=== PATIENT | female | born 1950 | race Caucasian/White ===

== ENCOUNTER 2018-04-01 22:11 | Emergency (ER) | payer MEDICARE, OTHER ==
[~2018-04-01] VITALS: Ht 162.6 cm; Wt 77.1 kg
--- NOTE | 2018-04-01 23:14 | ED Upper Extremity ---
General Chief Complaint: Trauma-Non Activation Stated Complaint: FALL Nursing Triage Note: LT ELBOW PAIN ONSET AFTER TAKING HER NIGHTTIME MEDS ET FELL. DENIES LOC. ABRASION ET BRUISING NOTED TO LT ELBOW Nursing Sepsis Screen: No Definite Risk Source: patient Exam Limitations: no limitations History of Present Illness Date Seen by Provider: April 01, 2018 Time Seen by Provider: 23:14 Initial Comments 67-year-old female patient presents to the emergency department complaints of left elbow pain, swelling, and bruising after falling last night after taking her nighttime meds. Denies hitting her head, loss of consciousness, confusion, or neck pain. Location Injury Occurred: HOME Onset: yesterday Pain/Injury Location: left elbow Method of Injury: fell Modifying Factors: Worse With Movement Allergies and Home Medications Allergies Coded Allergies: Sulfa (Sulfonamide Antibiotics) (Verified Allergy, Unknown, 04/01/18) codeine (Verified Allergy, Unknown, 04/01/18) meperidine (Verified Allergy, Unknown, 04/01/18) Uncoded Allergies: NOVACAINE (Allergy, Unknown, 04/01/18) Patient Home Medication List Home Medication List Reviewed: Yes Constitutional: no symptoms reported EENTM: no symptoms reported Respiratory: no symptoms reported Cardiovascular: no symptoms reported Gastrointestinal: no symptoms reported Genitourinary: no symptoms reported Musculoskeletal: see HPI; No back pain; joint pain, joint swelling; No neck pain Skin: change in color (ecchymosis left elbow) Psychiatric/Neurological: Denies Headache, Denies Numbness, Denies Paresthesia , Denies Tingling, Denies Weakness All Other Systems Reviewed Negative Unless Noted: Yes (Negative excepted noted.) Past Feliabx-Jwfsxp-Ydgesq Hx Patient Social History Alcohol Use: Denies Use Recreational Drug Use: No Smoking Status: Former Smoker Former Smoker, Quit: May 02, 1984 Recent Foreign Travel: No Contact w/Someone Who Travel: No Recent Infectious Disease Expo: No Recent Hopitalizations: No Physical Abuse: No Sexual Abuse: No Mistreated: No Fear: No Past Medical History Surgeries: Yes (BRAIN) Section, Orthopedic, Tubal Ligation Cardiac: No Neurological: Yes (ANEURYSM) Genitourinary: No Gastrointestinal: No Musculoskeletal: No Endocrine: No HEENT: No Cancer: No Psychosocial: No Nursing Suicide Risk Score: 0 Family Medical History Reviewed Nursing Family Hx No Pertinent Family Hx Physical Exam Vital Signs Capillary Refill : Less Than 3 Seconds General Appearance: WD/WN, no apparent distress HEENT: PERRL/EOMI, normal ENT inspection, TMs normal, pharynx normal Neck: non-tender, full range of motion, supple, normal inspection Cardiovascular: normal peripheral pulses, regular rate, rhythm, no murmur Respiratory: chest non-tender, lungs clear, normal breath sounds, no respiratory distress, no accessory muscle use Gastrointestinal: normal bowel sounds, non tender, soft, no organomegaly Back: normal inspection, no vertebral tenderness Shoulder: normal inspection, non-tender, no evidence of injury, normal ROM Elbow/Forearm: normal ROM, Left, abrasions (abrasion to the left posterior elbow.), bone tenderness, ecchymosis (posterior elbow.), pain, soft tissue tenderness, swelling (moderate sized hematoma of the left posterior elbow with a superficial abrasion.) Wrist: Yes normal inspection, Yes non-tender, Yes no evidence of injury, Yes normal ROM Hand: normal inspection, non-tender, no evidence of injury, normal ROM, Left Neurologic/Tendon: normal sensation, normal motor functions, normal tendon functions, responds to pain, no evidence tendon injury Neurologic/Psychiatric: no motor/sensory deficits, alert, normal mood/affect, oriented x 3 Skin: normal color, warm/dry, ecchymosis (left posterior elbow) Progress/Results/Core Measures Vital Signs/I&O Blood Pressure Mean: 89 Diagonstic Imaging: Xray Plain Films/CT/US/NM/MRI: elbow Comments no acute bony abnormality. Reviewed: Reviewed/Discussed (with Dr. Garcia.) Departure Communication (Admissions) Patient refuses CT head and tetanus vaccination. diagnostic findings of the left elbow discussed with the patient. patient refusal for ct head and tetanus discussed with dr. garcia. Impression Primary Impression: Traumatic hematoma of left elbow Qualified Codes: S50.02XA - Contusion of left elbow, initial encounter Additional Impressions: Elbow pain, left Fall Qualified Codes: W19.XXXA - Unspecified fall, initial encounter Disposition: HOME, SELF-CARE Condition: Improved Departure-Patient Inst. Decision time for Depature: 23:39 Patient Instructions: Contusion (DC), Preventing Falls in the Older Adult, Skin Abrasions (DC) Add. Discharge Instructions: All discharge instructions reviewed with patient and/or family. Voiced understanding. Medications as instructed. Continue usual home medications. Shower with antibacterial soap. Apply triple antibiotic ointment twice daily for 3 days to the left posterior elbow. Arm sling as instructed. Follow-up with Dr. Swann as an outpatient for recheck if no improvement in symptoms. Return in the emergency department for worsened symptoms or any other concerns. COOPER ROUSSEAU April 01, 2018 23:14
[2018-04-01] MEDS ORDERED: ACETAMINOPHEN 500 MG TAB (TYLENOL) PO STA (23:35)
[2018-04-02 00:04] VITALS: BP 116/68
--- NOTE | 2018-04-02 06:47 | Diagnostic Imaging Report ---
INDICATION: Fall. Left elbow pain. FINDINGS: 3 views. No fractures or dislocations. No joint effusion. IMPRESSION: Negative left elbow. Dictated by: Dictated on workstation # [id number]
== END 2018-04-02 00:04 | disposition home or self-care (01) ==
LOC: ER 22:12
DX: S50.02XA Contusion of left elbow, initial encounter (principal); Z88.2 Allergy status to sulfonamides; Z88.8 Allergy status to other drugs, medicaments and biological substances; Z88.5 Allergy status to narcotic agent; Z87.891 Personal history of nicotine dependence; Z98.51 Tubal ligation status; W19.XXXA Unspecified fall, initial encounter
CPT/HCPCS: 73080

== ENCOUNTER 2020-06-23 12:38 | Inpatient (IN) | payer MEDICARE, MEDICAID ==
[~2020-06-23] VITALS: Ht 165 cm; Wt 72.5 kg
--- NOTE | 2020-06-23 12:51 | ED Upper Extremity ---
General Chief Complaint: Upper Extremity Stated Complaint: L SHOULDER PAIN Source: patient Exam Limitations: no limitations History of Present Illness Date Seen by Provider: Jun 23, 2020 Time Seen by Provider: 12:49 Initial Comments To ER with left shoulder pain. She arrives from home in [facility] from [facility]. 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 She reports that she's been having increased falls for the past 3 days due to general weakness. She received fentanyl in route for the left shoulder pain and swelling. Onset: just prior to arrival Severity: moderate Pain/Injury Location: left shoulder Method of Injury: fell Modifying Factors: Worse With Movement Allergies and Home Medications Allergies Coded Allergies: Sulfa (Sulfonamide Antibiotics) (Verified Allergy, Unknown, 04/01/18) codeine (Verified Allergy, Unknown, 04/01/18) meperidine (Verified Allergy, Unknown, 04/01/18) Uncoded Allergies: NOVACAINE (Allergy, Unknown, 04/01/18) Home Medications Hydrocodone/Acetaminophen 1 Each Tablet, 1 EACH PO Q4-6HR PRN for PAIN-MODERATE Prescribed by: NAREN LEE on 06/23/20 [id number] Patient Home Medication List Home Medication List Reviewed: Yes Review of Systems Constitutional: see HPI EENTM: see HPI Respiratory: no symptoms reported Cardiovascular: no symptoms reported Genitourinary: no symptoms reported Musculoskeletal: see HPI Skin: no symptoms reported Psychiatric/Neurological: No Symptoms Reported Past Vbwxtgc-Ncgwto-Uwqwix Hx Patient Social History Former Smoker, Quit: May 02, 1984 Recent Hopitalizations: No Past Medical History Surgeries: Yes (BRAIN) Section, Orthopedic, Tubal Ligation Cardiac: No Neurological: Yes (ANEURYSM) Genitourinary: No Gastrointestinal: No Musculoskeletal: No Endocrine: No HEENT: Yes (states she is visually impaired) Cancer: No Psychosocial: No Family Medical History No Pertinent Family Hx Physical Exam Vital Signs Vital Signs - First Documented 06/23/20 12:40 Temp 36.7 Pulse 74 Resp 16 B/P (MAP) 142/71 (94) Pulse Ox 93 O2 Delivery Room Air Capillary Refill : Height, Weight, BMI Height: 5'4.00" Weight: 170lbs. oz. 77.639828mg; BMI Method:Stated General Appearance: WD/WN, no apparent distress Neck: non-tender, full range of motion Respiratory: no respiratory distress, no accessory muscle use Shoulder: deformity, ecchymosis, limited ROM, swelling Elbow/Forearm: normal inspection, non-tender Wrist: Yes normal inspection, Yes non-tender Hand: normal inspection, non-tender Neurologic/Psychiatric: alert, normal mood/affect, oriented x 3 Skin: normal color Progress/Results/Core Measures Results/Orders Lab Results Laboratory Tests Test 06/23/20 12:50 06/23/20 12:56 Range/Units White Blood Count 19.7 H 4.3-11.0 10^3/uL Red Blood Count 4.17 L 4.35-5.85 10^6/uL Hemoglobin 12.5 11.5-16.0 G/DL Hematocrit 40 35-52 % Mean Corpuscular Volume 95 80-99 FL Mean Corpuscular Hemoglobin 30 25-34 PG Mean Corpuscular Hemoglobin Concent 32 32-36 G/DL Red Cell Distribution Width 13.1 10.0-14.5 % Platelet Count 207 130-400 10^3/uL Mean Platelet Volume 10.0 7.4-10.4 FL Neutrophils (%) (Auto) 90 H 42-75 % Lymphocytes (%) (Auto) 3 L 12-44 % Monocytes (%) (Auto) 7 0-12 % Eosinophils (%) (Auto) 0 0-10 % Basophils (%) (Auto) 0 0-10 % Neutrophils # (Auto) 17.7 H 1.8-7.8 X 10^3 Lymphocytes # (Auto) 0.6 L 1.0-4.0 X 10^3 Monocytes # (Auto) 1.3 H 0.0-1.0 X 10^3 Eosinophils # (Auto) 0.0 0.0-0.3 10^3/uL Basophils # (Auto) 0.0 0.0-0.1 10^3/uL Neutrophils % (Manual) 87 % Lymphocytes % (Manual) 4 % Monocytes % (Manual) 4 % Eosinophils % (Manual) 0 % Basophils % (Manual) 1 % Band Neutrophils 4 % Blood Morphology Comment NORMAL Sodium Level 142 135-145 MMOL/L Potassium Level 4.3 3.6-5.0 MMOL/L Chloride Level 108 H 98-107 MMOL/L Carbon Dioxide Level 24 21-32 MMOL/L Anion Gap 10 5-14 MMOL/L Blood Urea Nitrogen 18 7-18 MG/DL Creatinine 0.82 0.60-1.30 MG/DL Estimat Glomerular Filtration Rate > 60 BUN/Creatinine Ratio 22 Glucose Level 128 H 70-105 MG/DL Calcium Level 9.2 8.5-10.1 MG/DL Corrected Calcium 9.1 8.5-10.1 MG/DL Total Bilirubin 0.3 0.1-1.0 MG/DL Aspartate Amino Transf (AST/SGOT) 20 5-34 U/L Alanine Aminotransferase (ALT/SGPT) 15 0-55 U/L Alkaline Phosphatase 50 40-136 U/L Total Protein 6.9 6.4-8.2 GM/DL Albumin 4.1 3.2-4.5 GM/DL Urine Color YELLOW Urine Clarity CLEAR Urine pH 6.0 5-9 Urine Specific [place] 1.020 1.016-1.022 Urine Protein NEGATIVE NEGATIVE Urine Glucose (UA) NEGATIVE NEGATIVE Urine Ketones NEGATIVE NEGATIVE Urine Nitrite NEGATIVE NEGATIVE Urine Bilirubin NEGATIVE NEGATIVE Urine Urobilinogen 0.2 < = 1.0 MG/DL Urine Leukocyte Esterase NEGATIVE NEGATIVE Urine RBC (Auto) NEGATIVE NEGATIVE Urine RBC RARE /HPF Urine WBC RARE /HPF Urine Squamous Epithelial Cells 0-2 /HPF Urine Crystals NONE /LPF Urine Bacteria NEGATIVE /HPF Urine Casts NONE /LPF Urine Mucus NEGATIVE /LPF Urine Culture Indicated NO My Orders Orders - NAREN LEE APRN Cbc With Automated Diff (06/23/20 12:46) Comprehensive Metabolic Panel (06/23/20 12:46) Ua Culture If Indicated (06/23/20 12:46) Ed Iv/Invasive Line Start (06/23/20 12:46) Ct Head/Cervical Spine Wo (06/23/20 12:46) Chest 1 View, Ap/Pa Only (06/23/20 12:46) Pelvis (06/23/20 12:46) Shoulder, Left, 3 Views (06/23/20 12:46) Manual Differential (06/23/20 12:50) Oxycodone/Apap 5/325mg Tablet (Percocet (06/23/20 14:00) Medications Given in ED Current Medications Medications Dose Ordered Sig/Delia Route Start Time Stop Time Status Last Admin Dose Admin Oxycodone/ Acetaminophen 1 tab ONCE ONCE PO 06/23/20 14:00 06/23/20 14:01 DC 06/23/20 14:05 1 TAB Vital Signs/I&O 06/23/20 12:40 Temp 36.7 Pulse 74 Resp 16 B/P (MAP) 142/71 (94) Pulse Ox 93 O2 Delivery Room Air Departure Communication (Admissions) Time/Spoke to Admitting Phy: 14:[address] Galan, we'll admit, I spoke with Dr. Walter from orthopedics. Nothing surgical at this time, recommends sling and outpatient follow-up with him in clinic in about 2 weeks. She is neurovascularly intact. 1421-appears to be a lateral 5th or 6th rib fracture on LEFT side not mentioned on chest x ray. no underlying pneumothorax seen. Patient reports that she lives at home by herself, she does have a comes via and sets up her medications for the week but does not have anyone that lives with her or helps care for her. She doesn't feel she'll be able to take care of herself at home and would be interested in going to [facility] upon discharge Impression Primary Impression: Proximal humerus fracture Qualified Codes: S42.202A - Unspecified fracture of upper end of left humerus, initial encounter for closed fracture Additional Impression: Rib fracture Disposition: ADMITTED INPATIENT Condition: Stable Admissions Decision to Admit Reason: Admit from ER (General) Decision to Admit/Date: Jun 23, 2020 Time/Decision to Admit Time: 14:35 Departure-Patient Inst. Decision time for Depature: 13:53 Referrals: AISHA DONIS MD (PCP/Family) Primary Care Physician KAMI XIE MD, MICHAEL P MD Patient Instructions: Shoulder Fracture (DC), Rib Fracture (DC) Add. Discharge Instructions: 1. Wear the sling at all times until you follow up with orthopedics and/or directed otherwise. Pain medication as directed. Return to ER for any worsening symptoms or other concerns. All discharge instructions reviewed with patient and/or family. Voiced understanding. Scripts Hydrocodone/Acetaminophen (Lorcet 5-325 mg Tablet) 1 Each Tablet 1 EACH PO Q4-6HR PRN for PAIN-MODERATE MDD 10 for 7 Days, #20 TAB Prov: NAREN LEE APRN 06/23/20 Copy Copies To 1: LANE WALTER MD, PETER J APRN Jun 23, 2020 12:51
[2020-06-23 13:03] LABS: BILIRUBIN,URINE NEGATIVE (NEGATIVE); CLARITY,URINE CLEAR; COLOR,URINE YELLOW; GLUCOSE, URINE (UA) NEGATIVE (NEGATIVE); KETONES,URINE NEGATIVE (NEGATIVE); LEUKOCYTE ESTERASE ,URINE NEGATIVE (NEGATIVE); NITRITE,URINE NEGATIVE (NEGATIVE); PROTEIN,URINE NEGATIVE (NEGATIVE)
[2020-06-23 13:03] LABS: BASOPHILS % (AUTO) 0 % (0-10); EOSINOPHILS % (AUTO) 0 % (0-10); HEMATOCRIT 40 % (35-52); HEMOGLOBIN 12.5 G/DL (11.5-16.0); LYMPHOCYTES # (AUTO) 0.6 X 10^3 (1.0-4.0); LYMPHOCYTES % (AUTO) 3 % (12-44); MEAN CORPUSCULAR HEMOGLOBIN 30 PG (25-34); MEAN CORPUSCULAR HGB CONC 32 G/DL (32-36); MEAN CORPUSCULAR VOLUME 95 FL (80-99); MONOCYTES # (AUTO) 1.3 X 10^3 (0.0-1.0); MONOCYTES % (AUTO) 7 % (0-12); NEUTROPHILS # (AUTO) 17.7 X 10^3 (1.8-7.8); NEUTROPHILS % (AUTO) 90 % (42-75); PLATELET COUNT 207 10^3/uL (130-400); RED CELL DISTRIBUTION WIDTH 13.1 % (10.0-14.5); WHITE BLOOD COUNT 19.7 10^3/uL (4.3-11.0)
[2020-06-23 13:10] LABS: BACTERIA,URINE NEGATIVE /HPF; RBC,URINE RARE /HPF; SQUAMOUS EPITHELIAL CELL,UR 0-2 /HPF; WBC,URINE RARE /HPF
[2020-06-23 13:18] LABS: ALBUMIN 4.1 GM/DL (3.2-4.5); CHLORIDE 108 MMOL/L (98-107); POTASSIUM 4.3 MMOL/L (3.6-5.0); SODIUM 142 MMOL/L (135-145)
[2020-06-23 13:19] LABS: CALCIUM 9.2 MG/DL (8.5-10.1)
[2020-06-23 13:20] LABS: GLUCOSE 128 MG/DL (70-105); TOTAL PROTEIN 6.9 GM/DL (6.4-8.2)
[2020-06-23 13:22] LABS: BILIRUBIN,TOTAL 0.3 MG/DL (0.1-1.0); CARBON DIOXIDE 24 MMOL/L (21-32)
[2020-06-23 13:24] LABS: ALKALINE PHOSPHATASE 50 U/L (40-136); CREATININE SERUM 0.82 MG/DL (0.60-1.30); GFR ESTIMATED > 60
[2020-06-23 13:25] LABS: BUN/CREATININE RATIO 22
[2020-06-23 13:27] LABS: ALANINE AMINOTRANSFERASE 15 U/L (0-55)
--- NOTE | 2020-06-23 13:30 | NUR ---
pulse ox dropped to 89% while laying down. Oxygen 2l nc applied et Nghia notified.
[2020-06-23 13:32] LABS: BAND NEUTROPHILS 4 %; BASOPHILS % (MANUAL) 1 %; EOSINOPHILS % (MANUAL) 0 %; LYMPHOCYTES % (MANUAL) 4 %; MONOCYTES % (MANUAL) 4 %; NEUTROPHILS % (MANUAL) 87 %; RBC MORPH NORMAL
[2020-06-23] MEDS ORDERED: HYDR-3870 PO (13:54)
[2020-06-23] MEDS ORDERED: oxyCODONE/APAP 5/325MG (PERCOCET 5) TABLET PO ONE (14:00)
--- NOTE | 2020-06-23 14:07 | NUR ---
PT SAT UP IN BED TO TAKE PAIN MEDS ET OXYGEN TURNED OFF. WILL MONITOR.
--- NOTE | 2020-06-23 14:09 | Diagnostic Imaging Report ---
INDICATION: Fall and left shoulder pain. TIME OF EXAM: 01:47 p.m. FINDINGS: Three views of the left shoulder were obtained. There are severe glenohumeral joint degenerative changes. There is an acute fracture involving the neck of the humerus. Acromioclavicular alignment is normal. IMPRESSION: Proximal humerus fracture. Dictated by: Dictated on workstation # [id number]
--- NOTE | 2020-06-23 14:09 | Diagnostic Imaging Report ---
PROCEDURE: CT head and CT cervical spine without contrast. TECHNIQUE: Multiple contiguous axial images were obtained through the brain and cervical spine without the use of intravenous contrast. Sagittal and coronal reformations through the cervical spine were then performed. Auto Exposure Controls were utilized during the CT exam to meet ALARA standards for radiation dose reduction. INDICATION: Fall. COMPARISON: No prior studies are available for comparison. FINDINGS: CT HEAD: Postsurgical changes with surgical clips in midline of the left occipital lobe are seen with adjacent large area of encephalomalacia which communicates with the occipital horn of the left lateral ventricle. This all appears chronic. There is no sulcal effacement or midline shift. No acute intra-axial or extra-axial hemorrhage is detected. Cisterns are patent. Visualized paranasal sinuses are clear. IMPRESSION: Chronic and postsurgical changes. No acute intracranial process is detected. CT CERVICAL SPINE: Curvature is normal. There is minimal anterolisthesis of C3 on C4 and C4 on C5 as well as C5 on C6. There is significant degenerative disc disease at C6-C7 level with disc space narrowing and marginal spurring. There is multilevel facet arthropathy. No fractures are identified. Prevertebral tissues are within normal limits. Odontoid is intact. IMPRESSION: Cervical spondylosis and listheses. No acute bony abnormality is detected. Dictated by: Dictated on workstation # [id number]
--- NOTE | 2020-06-23 14:09 | Diagnostic Imaging Report ---
INDICATION: Fall and left shoulder pain. TIME OF EXAM: 1:52 PM No prior studies are available for comparison. The heart size is normal. Lungs are clear of acute infiltrates. There is calcified density in the right base consistent with granuloma. No effusion or pneumothorax identified. Findings of the proximal left humerus fracture again noted. Right shoulder is intact. IMPRESSION: 1. Left proximal humerus fracture. 2. No acute cardiopulmonary process is detected. Dictated by: Dictated on workstation # [id number]
--- NOTE | 2020-06-23 14:11 | Diagnostic Imaging Report ---
INDICATION: Fall and pelvic pain. TIME OF EXAM: 01:54 p.m. FINDINGS: AP view of the pelvis demonstrates normal femoroacetabular alignment. Both hips appear to be intact. Rami are intact. SI joints and symphysis are non widened. No fractures are seen. IMPRESSION: No acute bony abnormality is detected. Dictated by: Dictated on workstation # [id number]
--- OUTSIDE RECORDS SUMMARY | 2020-06-23 14:31 | XMS REPORT | Continuity of Care Document ---
Author Organization Unknown Address Unknown Phone Unavailable Allergies Active Description Code Type Severity Reaction Onset Reported/Identified Relationship to Patient Clinical Status Yes codeine [id number] Drug Allergy Unknown N/A 04/01/2018 Yes meperidine [id number] Drug Allerg y Unknown N/A 04/01/2018 Yes NOVACAINE NOVACAINE Unknown N/A 04/01/2018 Yes Sulfa (Sulfonamide Antibiotics) [id number] Drug Allergy Unknown N/A 018 Medications There is no data. Problems Date Dx Coded Attending Type Code Diagnosis Diagnosed By 04/02/2018 COOPER GARRETT Ot S50.02XA CONTUSION OF LEFT ELBOW, INITIAL ENCOUNT 04/02/2018 COOPER GARRETT Ot S59.902A UNSPECIFIED INJURY OF LEFT ELBOW, INITIA 04/02/2018 COOPER GARRETT Ot W19.XXXA UNSPECIFIED FALL, INITIAL ENCOUNTER 04/02/2018 COOPER GARRETT Ot Z87.891 PERSONAL HISTORY OF NICOTINE DEPENDENCE 04/02/2018 COOPER GARRETT Ot Z88.2 ALLERGY STATUS TO SULFONAMIDES STATUS 04/02/2018 COOPER GARRETT Ot Z88.5 ALLERGY STATUS TO NARCOTIC AGENT STATUS 04/02/2018 COOPER GARRETT Ot Z88.8 ALLERGY STATUS TO OTH DRUG/MEDS/BIOL SUB 04/02/2018 COOPER GARRETT Ot Z98.51 TUBAL LIGATION STATUS 04/03/2018 COOPER GARRETT Ot S50.02XA CONTUSION OF LEFT ELBOW, INITIAL ENCOUNT 04/03/2018 COOPER GARRETT Ot S59.902A UNSPECIFIED INJURY OF LEFT ELBOW, INITIA 04/03/2018 COOPER GRARETT Ot W19.XXXA UNSPECIFIED FALL, INITIAL ENCOUNTER 04/03/2018 COOPER GARRETT Ot Z87.891 PERSONAL HISTORY OF NICOTINE DEPENDENCE 04/03/2018 COOPER GARRETT Ot Z88.2 ALLERGY STATUS TO SULFONAMIDES STATUS 04/03/2018 COOPER GARRETT Ot Z88.5 ALLERGY STATUS TO NARCOTIC AGENT STATUS 04/03/2018 COOPER GARRETT Ot Z88.8 ALLERGY STATUS TO OTH DRUG/MEDS/BIOL SUB 04/03/2018 COOPER GARRETT Ot Z98.51 TUBAL LIGATION STATUS Procedures There is no data. Results Test Result Range COVID-19 ([facility]) - 05/14/20 12:33 Encounters ACCT No. Visit Date/Time Discharge Status Pt. Type Provider Facility Loc./Unit Complaint [id number] 05/14/2020 12:30:00 05/14/2020 23:59: 59 [facility] Outpatient MATI GARCIA L[facility] [id number] 05/14/2020 12:30:00 Document Registration [id number] 04/01/2018 22:12:00 018 00:04:00 DIS Emergency COOPER GARRETT [facility] ER [facility]
[2020-06-23] MEDS ORDERED: KETOROLAC 30 MG/ML VIAL IVP ONE (15:00)
[2020-06-23] MEDS ORDERED: fentaNYL INJECTION 100 MCG/2 ML AMP IVP ONE (15:00)
--- NOTE | 2020-06-23 15:25 | NUR ---
LEEDILMA Jordy admitted to room 416-1, with an admitting diagnosis of LT HUMERUS FX AND LT 5TH RIB FX, on 06/23/20 from ED via [facility], accompanied by STAFF. DILMA HOWARD introduced to surroundings, call light, bed controls, phone, TV, temperature control, lights, meal times, smoking policy, visitor policy, side rail policy, bathrooms and showers. Patient Rights given to patient in the handbook. DILMA HOWARD verbalizes understanding that [facility] is not responsible for the loss or damage to any personal effects or valuables that are kept in the patients posession during their hospitalization. The following Patient Care Plans were discussed with the PT: Discharge Planning, PAIN. DILMA HOWARD verbalizes understanding of Interdisciplinary Patient Education. Patient and/or family were informed about the Rapid Response Team and its purpose.
[2020-06-23 15:31] VITALS: BP 149/76
[2020-06-23] MEDS ORDERED: BENA20TA7 PO (15:33)
[2020-06-23] MEDS ORDERED: VENL75CA93 PO (15:53)
[2020-06-23] MEDS ORDERED: ZOLP5TAB7 PO (15:53)
[2020-06-23] MEDS ORDERED: ZFR20T PO (15:53)
[2020-06-23] MEDS ORDERED: ATOR20TA66 PO (15:53)
[2020-06-23] MEDS ORDERED: NAPR-1070 PO (15:53)
[2020-06-23] MEDS ORDERED: CNC1KV IM (15:53)
[2020-06-23] MEDS ORDERED: HYDR-3781 PO (15:53)
[2020-06-23] MEDS ORDERED: FLUT9.9S NS (15:53)
[2020-06-23] MEDS ORDERED: DOCU-238 PO (15:53)
[2020-06-23] MEDS ORDERED: TRZ50T PO (15:53)
[2020-06-23] MEDS ORDERED: ZAFI10TA2 PO (15:53)
[2020-06-23] MEDS ORDERED: LEVO88TA54 PO (15:53)
[2020-06-23] MEDS ORDERED: MONT10TA26 PO (15:53)
--- OUTSIDE RECORDS SUMMARY | 2020-06-23 17:37 | XMS REPORT | Continuity of Care Document ---
Author Organization Unknown Address Unknown Phone Unavailable Allergies Active Description Code Type Severity Reaction Onset Reported/Identified Relationship to Patient Clinical Status Yes codeine [id number] Drug Allergy Unknown N/A 04/01/2018 Yes meperidine [id number] Drug Allerg y Unknown N/A 04/01/2018 Yes NOVACAINE NOVACAINE Unknown N/A 04/01/2018 Yes Sulfa (Sulfonamide Antibiotics) [id number] 0491 Drug Allergy Unknown N/A 018 Medications [...] INJURY OF LEFT ELBOW, INITIA 04/03/2018 COOPER GARRETT Ot W19.XXXA UNSPECIFIED FALL, INITIAL ENCOUNTER 04/03/2018 [...] Status Pt. Type Provider Facility Loc./Unit Complaint [id number] 05/14/2020 12:30:00 05/14/2020 23:59: 59 [facility] Outpatient MATI GARCIA LAC [facility] [id number] 05/14/2020 12:30:00 Document Registration [id number] 04/01/2018 22:12:00 018 00:04:00 DIS Emergency COOPER GARRETT [facility] ER [facility]
[2020-06-23] MEDS ORDERED: ANTACID SUSP 30 ML UDC (MYLANTA) PO PRN (20:00)
[2020-06-23] MEDS ORDERED: oxyCODONE/APAP 5/325MG (PERCOCET 5) TABLET PO PRN (20:00)
[2020-06-23] MEDS ORDERED: BISACODYL 10 MG SUPP (DULCOLAX) PR PRN (20:00)
[2020-06-23] MEDS ORDERED: HYDROmorphone 2 MG/ML VIAL (DILAUDID) IV PRN (20:00)
[2020-06-23] MEDS ORDERED: polyethylene glycoL POWDER 17 GM (MIRALAX) PACK PO PRN (20:00)
[2020-06-23 20:01] VITALS: BP 138/74
[2020-06-23] MEDS: DOCUSATE SODIUM 100 MG (COLACE) CAP PO SCH (20:47)
[2020-06-23] MEDS: ENOXAPARIN 40 MG/0.4 ML (LOVENOX) SYR SC SCH (20:51)
[2020-06-23] MEDS: SENNOSIDES 8.6 MG (SENOKOT) TAB PO SCH (20:51)
[2020-06-23] MEDS ORDERED: ZOLPIDEM 5 MG (AMBIEN) TAB PO SCH (21:00)
[2020-06-23] MEDS ORDERED: ZAFIRLUKAST 10 MG PO SCH (21:00)
[2020-06-23] MEDS ORDERED: DOCUSATE SODIUM 100 MG (COLACE) CAP PO SCH (21:00)
[2020-06-23] MEDS ORDERED: hydrOXYzine (VISTARIL/ATARAX) 25 MG capsule/tablet PO SCH (21:00)
[2020-06-23] MEDS: traZODone 50 MG (DESYREL) TAB PO SCH (21:03)
[2020-06-23] MEDS: inSUlin ASPART (NovoLOG) 1 UNIT/0.01 ML (CHARGE PER UNIT) SC SCH (21:04)
[2020-06-23] MEDS: ZAFIRLUKAST (ACCOLATE) 20 MG TAB PO SCH (21:49)
[2020-06-23 23:00] VITALS: BP 149/76
[2020-06-24 04:00] VITALS: BP 145/81
[2020-06-24] MEDS: inSUlin ASPART (NovoLOG) 1 UNIT/0.01 ML (CHARGE PER UNIT) SC SCH ×4 (06:07→21:14)
[2020-06-24 06:25] LABS: BASOPHILS % (AUTO) 0 % (0-10); EOSINOPHILS # (AUTO) 0.1 10^3/uL (0.0-0.3); EOSINOPHILS % (AUTO) 1 % (0-10); HEMATOCRIT 36 % (35-52); HEMOGLOBIN 11.4 G/DL (11.5-16.0); LYMPHOCYTES % (AUTO) 9 % (12-44); MEAN CORPUSCULAR HEMOGLOBIN 30 PG (25-34); MEAN CORPUSCULAR HGB CONC 32 G/DL (32-36); MEAN CORPUSCULAR VOLUME 95 FL (80-99); MEAN PLATELET VOLUME 10.8 FL (7.4-10.4); MONOCYTES # (AUTO) 1.2 X 10^3 (0.0-1.0); MONOCYTES % (AUTO) 11 % (0-12); NEUTROPHILS # (AUTO) 8.8 X 10^3 (1.8-7.8); NEUTROPHILS % (AUTO) 79 % (42-75); PLATELET COUNT 167 10^3/uL (130-400); WHITE BLOOD COUNT 11.2 10^3/uL (4.3-11.0)
[2020-06-24 08:00] VITALS: BP 144/83
[2020-06-24] MEDS: ZAFIRLUKAST (ACCOLATE) 20 MG TAB PO SCH ×2 (09:00→21:19)
[2020-06-24] MEDS: SENNOSIDES 8.6 MG (SENOKOT) TAB PO SCH ×3 (09:00→21:18)
[2020-06-24] MEDS: DOCUSATE SODIUM 100 MG (COLACE) CAP PO SCH ×3 (09:00→21:18)
[2020-06-24] MEDS ORDERED: MONTELUKAST 10 MG (SINGULAIR) TAB PO SCH (09:00)
[2020-06-24] MEDS: LEVOTHYROXINE 88 MCG (LEVOTHORID) TAB PO SCH (09:26)
[2020-06-24] MEDS: ONDANSETRON 4 MG (ZOFRAN) ORAL DISSOLVE TAB PO PRN (09:26)
[2020-06-24] MEDS: VENlafaxine XR 75 MG (EFFEXOR XR) CAP PO SCH (09:26)
[2020-06-24] MEDS: lisINopril 20 MG (PRINIVIL) TABLET PO SCH (09:26)
[2020-06-24] MEDS: traZODone 50 MG (DESYREL) TAB PO SCH ×2 (09:28→21:18)
[2020-06-24] MEDS: FLUTICASONE NASAL SPRAY (FLONASE) 16 GM BTL NS SCH (09:28)
--- NOTE | 2020-06-24 11:03 | NUR ---
DARLING Gallo made initial visit. Spoke with father while pt slept. Things going well. Addendum: 06/24/20 at 1106 by NAREN DE LEÓN PAST Pt was awake and expressed hyun in healing. No father present.
--- NOTE | 2020-06-24 11:08 | NUR ---
CM/SS: Visited with pt as to plan for discharge Plan: Undetermined at this time. Possible [facility] for skilled stay Summary: Pt reports she is from home and that she would like to be able to go to [facility] to get her strength up and then return home. She reports she will need to get her medicare card and Medicaid [place] card. A friend Ania has the cards. Pt has a son that is coming from [place] sometime today. Pt reports having help in the home for a total of 10 3/4 hours a week. Pt is more concerned about cost for the skilled stay. Her medicare skilled benefit is explained to her. She seems to understand, however pt seems a little scattered. This worker will call the friend to obtain a copy of the cards. Telephone call to friend Ania [phone]. She obtains this workers email, and will email copies of the card to this worker. Copies of cards received. Call to [facility]. Gerber, Traffic Law Attorney - [phone]. Verify the fax number. He seems to be familiar with the pt and will review and let this worker know if they can meet the pt's needs. Information faxed to [facility] attn: Gerber. This worker will follow up.
[2020-06-24 12:00] VITALS: BP 111/70
--- NOTE | 2020-06-24 13:22 | NUR ---
RD ASSESSMENT PMHx: no significant PMH PT INTERACTION: Pt was awake and pleasant during nutrition assessment. Pt states current appetite is good. Note avg PO intake 50% x1meal, per chart review. Pt states following a regular diet at home, and that she has an aide come in and prepare her meals weekly. Pt states she has dentures, but has no issues chewing/swallowing food. Pt states recent issues with nausea and vomiting. Pt states no recent issues with constipation or diarrhea, and that her last BM was 06/23. Note pt currently on bowel regimen fo colace BID; senna BID; and miralax BID, per chart review. Pt states recent "13-15# wt loss [id number]." Note unable to determine recent wt hx, per chart review. ABNORMAL NUTRITION-RELATED LAB VALUES LOW: HIGH: Cl 108; glu 128 Est. kcal needs: 1450 kcal | 20 kcal/kg Est. Pro needs: 58 g Pro | 0.8 g Pro/kg PES STATEMENT: Inadequate oral intake (NI-2.1) related to nausea | vomiting as evidenced by pt interview | avg PO intake 50% x1meal INTERVENTION: Continue with current diet order of Regular diet. Pt may benefit from nutrition supplementation if PO intake declines. Will continue to follow and reassess as pt needs, intake, and status change. MONITOR/EVALUATE: PO Intake; Plan of Care; Hydration Status; Weight Status; Lab Values Con Das, MS, RD, LD
--- NOTE | 2020-06-24 13:27 | NUR ---
CM/SS: [facility] is requesting Physical Therapy and Occupational Therapy eval notes. Both disciplines have orders, and pt is awaiting evaluations.
--- NOTE | 2020-06-24 13:38 | History & Physical-Hospitalist ---
History of Present Illness HPI/Chief Complaint Rosa Downey is a 69-year-old female with past medical history of hypertension, hyperlipidemia, hypothyroidism, insomnia, who presented after having a ground- level fall. She reports that she is slowly been getting more weak over the past several weeks. She denies any syncope. She denies any lightheadedness or dizziness. She uses a walker to get around her house. She denies any fevers or chills. She denies any shortness of breath or cough. She denies any chest pain. She had some nausea after taking her pain medicine this morning. She denies any vomiting. She denies any abdominal pain. She denies any diarrhea. She has a history of a brain aneurysm and residual left-sided weakness. Source: patient Exam Limitations: no limitations Date Seen 06/24/20 Time Seen by a Provider: 10:05 Attending Physician Leatha Terrazas MD PCP Irene Swann MD Referring Physician Date of Admission Jun 23, 2020 at 14:50 Home Medications & Allergies Home Medications Reviewed patient Home Medication Reconciliation performed by pharmacy medication reconciliations airdrop systems technician and/or nursing. Patients Allergies have been reviewed. Allergies Allergies Coded Allergies Sulfa (Sulfonamide Antibiotics) (Verified Allergy, Unknown, 06/23/20) codeine (Verified Allergy, Unknown, 06/23/20) meperidine (Verified Allergy, Unknown, 06/23/20) Uncoded Allergies NOVACAINE ( Allergy, Unknown, 04/01/18) Past Kyueqwh-Sqaltd-Qpibzm Hx Past Med/Social Hx: Reviewed Nursing Past Med/Soc Hx Patient Social History Alcohol Use: Denies Use Recreational Drug Use: No Smoking Status: Former Smoker Former Smoker, Quit: May 02, 1984 Type Used: Cigarettes 2nd Hand Smoke Exposure: No Physical Abuse Screen: No Sexual Abuse: No Recent Foreign Travel: No Contact w/other who traveled: No Recent Hopitalizations: No Recent Infectious Disease Expo: No Seasonal Allergies Seasonal Allergies: No Past Medical History Surgeries: Brain Shunt, Section, Orthopedic, Tubal Ligation Currently Using CPAP: No Currently Using BIPAP: No Cardiac: Hypertension Sexually Transmitted Disease: No HIV/AIDS: No Female Reproductive Disorders: Denies Tubal Ligation Musculoskeletal: Arthritis History of Blood Disorders: No Family History No Pertinent Family Hx Review of Systems Constitutional: weakness EENTM: no symptoms reported Respiratory: no symptoms reported Cardiovascular: no symptoms reported Gastrointestinal: no symptoms reported Genitourinary: no symptoms reported Musculoskeletal: no symptoms reported Skin: no symptoms reported Psychiatric/Neurological: No Symptoms Reported Physical Exam Physical Exam Vital Signs Vital Signs - First Documented 06/23/20 06/23/20 12:40 14:50 Temp 36.7 Pulse 74 Resp 16 B/P (MAP) 142/71 (94) Pulse Ox 93 O2 Delivery Room Air O2 Flow Rate 2.00 Capillary Refill : Less Than 3 SecondsLess Than 3 Seconds Height, Weight, BMI Height: 5'4.00" Weight: 170lbs. oz. 77.109754ky; 27.62 BMI Method:Stated General Appearance: No Apparent Distress, Chronically ill HEENT: PERRL/EOMI, Pharynx Normal Neck: Normal Inspection, Supple Respiratory: Lungs Clear, Normal Breath Sounds, No Respiratory Distress Cardiovascular: Regular Rate, Rhythm, No Edema, No Murmur Gastrointestinal: Normal Bowel Sounds, Non Tender, Soft Extremity: Normal Inspection, Non Tender, No Pedal Edema Neurologic/Psychiatric: Alert, Oriented x3, Motor Weakness Skin: Normal Color, Warm/Dry Results Results/Procedures Labs Laboratory Tests 06/23/20 12:50 06/24/20 05:40 Patient resulted labs reviewed. Imaging: Reviewed Imaging Report Assessment/Plan Admission Diagnosis Proximal humerus fracture Admission Status: Inpatient Order (span 2 midnights) Reason for Inpatient Admission: Ground-level fall Debility Assessment and Plan Proximal humerus fracture Ground-level fall Debility XR with nondisplaced proximal humerus fracture Orthopedic surgery consulted, recommends sling and outpatient follow-up Consult PT/OT Consult inpatient rehabilitation Hypertension Hyperlipidemia Hypothyroidism Insomnia Continue home meds DVT prophylaxis: Lovenox Diagnosis/Problems Diagnosis/Problems (1) Proximal humerus fracture Status: Acute Qualifiers: Encounter type: initial encounter Fracture type: closed Fracture morphology: unspecified fracture morphology Laterality: left Qualified Codes: S42.202A - Unspecified fracture of upper end of left humerus, initial encounter for closed fracture (2) Fall from ground level Status: Acute (3) Debility Status: Acute (4) HTN (hypertension) Status: Chronic Qualifiers: Hypertension type: essential hypertension Qualified Codes: I10 - Essential (primary) hypertension (5) HLD (hyperlipidemia) Status: Chronic (6) Insomnia Status: Chronic Clinical Quality Measures DVT/VTE Risk/Contraindication: Risk Factor Score Per Nursin RFS Level Per Nursing on Admit: 4+=Very High LEATHA TERRAZAS MD Jun 24, 2020 13:38
--- NOTE | 2020-06-24 13:59 | NUR ---
Inpatient rehab evaluation Received order to evaluate patient for admission to the inpatient rehab unit. Patient has [employer] Medicare and would require prior authorization for ARU admission. PT and OT evaluations have been ordered and are pending. Progress notes from the ED indicate patient would be interested in going to [facility] upon discharge as she feels she cannot take care of herself at home. Will f/u with acute care web content & social media manager regarding discharge plan. Discharge goal from ARU would be to return home. If patient feels returning home is not an option at this time, would recommend discharge from acute to [facility]. Thank you for the referral.
[2020-06-24 15:30] VITALS: BP 98/61
--- NOTE | 2020-06-24 16:00 | NUR ---
TOOK OVER CARE OF PT AND RECEIVED REPORT FROM LIBORIO BATISTA. INTRODUCED MYSELF TO PT, WHO IS RESTING WITH SON AT BEDSIDE.
[2020-06-24] MEDS: ENOXAPARIN 40 MG/0.4 ML (LOVENOX) SYR SC SCH (21:18)
[2020-06-24] MEDS: hydrOXYzine (VISTARIL/ATARAX) 25 MG capsule/tablet PO SCH (21:18)
[2020-06-24] MEDS: MELATONIN 3 MG TABLET PO PRN (21:18)
[2020-06-25 00:30] VITALS: BP 102/65
[2020-06-25] MEDS: inSUlin ASPART (NovoLOG) 1 UNIT/0.01 ML (CHARGE PER UNIT) SC SCH ×4 (06:05→21:53)
[2020-06-25] MEDS: LEVOTHYROXINE 88 MCG (LEVOTHORID) TAB PO SCH (07:52)
[2020-06-25] MEDS: VENlafaxine XR 75 MG (EFFEXOR XR) CAP PO SCH (07:52)
[2020-06-25] MEDS: traZODone 50 MG (DESYREL) TAB PO SCH ×2 (07:52→20:08)
[2020-06-25] MEDS: ONDANSETRON 4 MG (ZOFRAN) ORAL DISSOLVE TAB PO PRN ×2 (07:52→17:25)
[2020-06-25] MEDS: FLUTICASONE NASAL SPRAY (FLONASE) 16 GM BTL NS SCH (07:53)
[2020-06-25] MEDS: lisINopril 20 MG (PRINIVIL) TABLET PO SCH (07:53)
[2020-06-25 08:00] VITALS: BP 112/71
[2020-06-25] MEDS: DOCUSATE SODIUM 100 MG (COLACE) CAP PO SCH ×2 (11:26→20:09)
[2020-06-25] MEDS: ZAFIRLUKAST (ACCOLATE) 20 MG TAB PO SCH (11:26)
[2020-06-25] MEDS: SENNOSIDES 8.6 MG (SENOKOT) TAB PO SCH ×2 (11:26→20:09)
[2020-06-25] MEDS: ACETAMINOPHEN 325 MG TABLET PO PRN (11:57)
--- NOTE | 2020-06-25 12:10 | Occupational Therapy Eval ---
OT Evaluation-General/PLF Medical Diagnosis Admission Date Jun 23, 2020 at 14:50 Medical Diagnosis: Left rib and shoulder fx Onset Date: Jun 24, 2020 Therapy Diagnosis Therapy Diagnosis: Weakness, decreased ADL skills Height/Weight Height (Feet): 5 Height (Inches): 4.00 Weight (Pounds): 170 Precautions Precautions/Isolations: Fall Prevention, Standard Precautions Weight Bear Status Weight Bearing Restriction: Non Weight Bearing Location Restriction: L UE Referral Physician: Dr. Galan Referral Reason: Activity Tolerance, Self Care, Evaluation/Treatment, Strengthening/ROM Medical History Additional Medical History Right knee replacement, brain aneurysm when pt. was 38, limited vision, multiple falls, left foot drop. Current History Pt. fell at home sustaining left rib and shoulder fx. No surgical intervention indicated. Pt. in arm sling and is to wear for 2 weeks, until return to physician. Reviewed History: Yes Social History Home: Apartment Current Living Status: Alone (Caregiving assistance) Entry Into Home: Stairs With Railing Steps Into Home: 1 ADL-Prior Level of Function SCALE: Activities may be completed with or without assistive devices. 5-Mjgmpwewng-chavbdl completes the activity by him/herself with no assistance from a helper. 5-Set-up or Clean-up Assistance-helper sets up or cleans up; patient completes activity. [place] assists only prior to or following the activity. 4-Supervision or Touching Assistance-helper provides verbal cues and/or touching/steadying and/or contact guard assistance as patient completes activity. Assistance may be provided throughout the activity or intermittently. 3-Partial/Moderate Assistance-helper does LESS THAN HALF the effort. [place] lifts, holds or supports trunk or limbs, but provides less than half the effort. 2-Substantial/Maximal Assistance-helper does MORE THAN HALF the effort. [place] lifts or holds trunk or limbs and provides more than half the effort. 0-Vclswxxcl-datecm does ALL the effort. Patient does none of the effort to complete the activity. Or, the assistance of 2 or more helpers is required for the patient to complete the activity. If activity was not attempted, code reason: 7-Patient Refused. 9-Not Applicable-not attempted and the patient did not perform the activity before the current illness, exacerbation or injury. 10-Not Attempted due to Environmental Limitations-(lack of equipment, weather restraints, etc.). 88-Not Attempted due to Medical Conditions or Safety Concerns. ADL PLOF Comments Pt. reports that since her brain injury multiple years ago, she has sustained left sided weakness. Her left UE is limited in function, as well as her LE. She receives caregiving assistance for ADLs, in which they bathe and dress her. Pt. reports that when they aren't present, that she can do this for herself. She typically uses a walker, and oxygen at night. Self Care: Needed Some Help Functional Cognition: Unknown DME/Equipment: Bath Chair, Tub/Shower OT Current Status Subjective Pt. reports 8/10 pain in left shoulder with movement. Nursing is aware, and checking on pain medication. Appearance Pt. is in bed and agrees to treatment. Mental Status/Objective Patient Orientation: Person, Place Current Hand Dominance: Right Upper Extremity ROM Pt. is able to flex right shoulder to approximately 90 degrees. She states that she is limited in shoulder due to falls. Pt. is in sling with left UE. Reports that her left hand is limited with movement and coordination due to her brain injury. Upper Extremity Coordination Intact right hand, impaired left Upper Extremity Strength Pt. is able to demonstrate 5/5 muscle strength to available ranges in right UE. Pt. states, "I have always had to rely on this side and that is why it is strong." ADL-Treatment On/Off Footwear (QC): 2 (Pt. is able to kick feet out for OT to don socks, but is unable to don them herself.) Other Treatments Pt. reports that she has limited vision due to brain injury. Pt. reports that she has a caregiver that assists with cooking/cleaning, as well as ADLs. She typically moves around her apartment with a walker. Pt. indicates that she has been falling a lot recently. States it is because she has foot drop of the left ankle, and often catches her toes. When OT recommends an AFO for support, she states that she will not wear one. OT asks why and she states, "because I am a Zoroastrianism and God has spoke to me. He told me that I don't need one and that I will be kicking my feet up someday, and I am going to put all my trust into him." Pt. participates in co-treatment overall with PT/OT due to level of skilled assist x 2 needed. OT facilitated ADL skills and UE positioning while PT facilitated transfers and mobility. Pt. requires max assist for supine-sit. Stands with mod x 2 at bed side. She is encouraged to take steps toward right side, toward HOB. This is difficult for her, and she requires increased time. Pt. has assist on both sides for support. Pt. sits with min assist. Requires max x 2 for sit-supine, and max x 2 for bed mobility and positioning. All needs met and bed alarm set. Education OT Patient Education: Correct positioning, Modified ADL techniques, Progress toward Goal/Update tx plan, Purpose of tx/functional activities, Reviewed precautions, Rehab process, Transfer techniques Teaching Recipient: Patient Teaching Methods: Demonstration, Discussion Response to Teaching: Verbalize Understanding, Return Demonstration, Reinforcement Needed OT Short Term Goals Short Term Goals Time Frame: Jul 02, 2020 Eatin Oral hygiene: 4 Toileting hygiene: 3 Shower/bathe self: 3 Upper body dressin Lower body dressin Putting on/taking off footwear: 3 OT Tablet Technician Goals Longterm Goals Time Frame: Jul 09, 2020 Eating (QC): 5 Oral Hygiene (QC): 5 Toileting Hygiene (QC): 4 Shower/Bathe Self (QC): 3 Upper Body Dressing (QC): 4 Lower Body Dressing (QC): 4 On/Off Footwear (QC): 4 Goals written to not exceed independence, as pt. is not independent in home setting previously, and requires caregiving support. Additional Goals: 1-Demonstrate ADL Tasks, 2-Verbalize Understanding, 3-ImproveStrength/Christi 1=Demonstrate adherence to instructed precautions during ADL tasks. 2=Patient will verbalize/demonstrate understanding of assistive devices/modifications for ADL. 3=Patient will improve strength/tolerance for activity to enable patient to perform ADL's. OT Education/Plan Problem List/Assessment Assessment: Decreased Activ Tolerance, Decreased Safety Aware, Decreased UE Strength, Dependent Transfers, Impaired Bed Mobility, Impaired Cognition, Impaired Coordination, Impaired Funct Balance, Impaired I ADL's, Impaired Self- Care Skills, Restricted Funct UE ROM, Visual-Perceptual Deficit Discharge Recommendations Plan/Recommendations: Continue POC Therapy Discharge Recommendati: 24 Hour Supervision, Post Acute OT Comment Equipment needs and discharge location to be determined. Treatment Plan/Plan of Care Treatment,Training & Education: Yes Patient would benefit from OT for education, treatment and training to promote independence in ADL's, mobility, safety and/or upper extremity function for ADL's. Plan of Care: ADL Retraining, Functional Mobility, UE Funct Exercise/Act Treatment Duration: Jul 09, 2020 Frequency: 5 times per week Estimated Hrs Per Day: .25 hour per day Agreement: Yes Rehab Potential: Fair Time/GCodes Start Time: 10:48 Stop Time: 11:12 Total Time Billed (hr/min): 24 Billed Treatment Time 1, EVH x 24minutes Co-treatment performed with PT. Please see above note for designated roles. RENATE LANG OT Jun 25, 2020 12:10
--- NOTE | 2020-06-25 12:13 | Progress Note - Hospitalist ---
Subjective HPI/CC On Admission Date Seen by Provider: Jun 25, 2020 Time Seen by Provider: 09:50 Rosa Downey is a 69-year-old female with past medical history of hypertension, hyperlipidemia, hypothyroidism, insomnia, who presented after having a ground- level fall. She reports that she is slowly been getting more weak over the past several weeks. She denies any syncope. She denies any lightheadedness or dizziness. She uses a walker to get around her house. She denies any fevers or chills. She denies any shortness of breath or cough. She denies any chest pain. She had some nausea after taking her pain medicine this morning. She denies any vomiting. She denies any abdominal pain. She denies any diarrhea. She has a history of a brain aneurysm and residual left-sided weakness. Subjective/Events-last exam She says that she did not sleep very well. She has not worked with physical therapy yet. She is not having pain unless she moves her arm. She denies any fevers or chills. She denies any shortness of breath or cough. She denies any abdominal pain, nausea, or vomiting. She has no other complaints or concerns. Objective Exam Vital Signs Vital Signs Date Time Temp Pulse Resp B/P (MAP) Pulse Ox O2 Delivery O2 Flow Rate FiO2 06/25/20 08:00 Nasal Cannula 2.00 06/25/20 08:00 36.8 86 18 112/71 (85) 93 Capillary Refill : Less Than 3 SecondsLess Than 3 Seconds General Appearance: No Apparent Distress, WD/WN, Anxious Respiratory: Lungs Clear, Normal Breath Sounds, No Respiratory Distress Cardiovascular: Regular Rate, Rhythm, No Edema, No Murmur Gastrointestinal: Normal Bowel Sounds, Non Tender, Soft Extremity: No Pedal Edema, Other (Left arm in sling) Neurologic/Psychiatric: Alert, Oriented x3, No Motor/Sensory Deficits, Normal Mood/Affect Skin: Normal Color, Warm/Dry Results/Procedures Lab Patient resulted labs reviewed. Imaging: Reviewed Imaging Report Assessment/Plan Assessment and Plan Assess & Plan/Chief Complaint Proximal humerus fracture Ground-level fall Debility XR with nondisplaced proximal humerus fracture Orthopedic surgery consulted, recommends sling and outpatient follow-up PT/OT consulted Likely discharge to [facility] Saturday, send therapy notes today Hypertension Hyperlipidemia Hypothyroidism Insomnia Continue home meds DVT prophylaxis: Lovenox Diagnosis/Problems Diagnosis/Problems (1) Proximal humerus fracture Status: Acute Qualifiers: Encounter type: initial encounter Fracture type: closed Fracture morphology: unspecified fracture morphology Laterality: left Qualified Codes: S42.202A - Unspecified fracture of upper end of left humerus, initial encounter for closed fracture (2) Fall from ground level Status: Acute (3) Debility Status: Acute (4) HTN (hypertension) Status: Chronic Qualifiers: Hypertension type: essential hypertension Qualified Codes: I10 - Essential (primary) hypertension (5) HLD (hyperlipidemia) Status: Chronic (6) Insomnia Status: Chronic Clinical Quality Measures DVT/VTE Risk/Contraindication: Risk Factor Score Per Nursin RFS Level Per Nursing on Admit: 4+=Very High YOSELIN TERRAZAS MD Jun 25, 2020 12:13
--- NOTE | 2020-06-25 14:03 | NUR ---
OT (WHICH STATED THEY WORKED WITH OT) NOTES FAXED TO [facility]. (FAX # [phone])
--- NOTE | 2020-06-25 15:48 | Physical Therapy Evaluation ---
PT Evaluation-General Medical Diagnosis Admission Date Jun 23, 2020 at 14:50 Medical Diagnosis: Left rib and shoulder fx Onset Date: Jun 24, 2020 Therapy Diagnosis Therapy Diagnosis: decreased functional mobility Height/Weight Height (Feet): 5 Height (Inches): 4.00 Weight (Pounds): 170 Precautions Precautions/Isolations: Fall Prevention, Standard Precautions Weight Bear Status Right Lower Extremity: Right Weight Bearing/Tolerated Left Lower Extremity: Left Weight Bearing/Tolerated NWB (L) UE Referral Physician: Dr. Galan Reason for Referral: Evaluation/Treatment Medical History Additional Medical History (R) TKR, brain aneurysm, decreased vision, (L) foot drop Current History Pt sustained fall with (L) shoulder and rib Fx Reviewed History: Yes Social History Home: Apartment Current Living Status: Alone (Caregiving assistance) Entry Into Home: Stairs With Railing PT Steps Into Home: 1 Prior Prior Level of Function SCALE: Activities may be completed with or without assistive devices. 6-Vjkwamuadk-sgrilhl completes the activity by him/herself with no assistance from a helper. 5-Set-up or Clean-up Assistance-helper sets up or cleans up; patient completes activity. [place] assists only prior to or following the activity. 4-Supervision or Touching Assistance-helper provides verbal cues and/or touching/steadying and/or contact guard assistance as patient completes activity. Assistance may be provided throughout the activity or intermittently. 3-Partial/Moderate Assistance-helper does LESS THAN HALF the effort. [place] lifts, holds or supports trunk or limbs, but provides less than half the effort. 2-Substantial/Maximal Assistance-helper does MORE THAN HALF the effort. [place] lifts or holds trunk or limbs and provides more than half the effort. 2-Ffsherqqm-wcgunj does ALL the effort. Patient does none of the effort to complete the activity. Or, the assistance of 2 or more helpers is required for the patient to complete the activity. If activity was not attempted, code reason: 7-Patient Refused. 9-Not Applicable-not attempted and the patient did not perform the activity befo re the current illness, exacerbation or injury. 10-Not Attempted due to Environmental Limitations-(lack of equipment, weather re straints, etc.). 88-Not Attempted due to Medical Conditions or Safety Concerns. Bed Mobility: 6 Transfers (B,C,W/C): 6 Gait: 6 Stairs: 6 Indoor Mobility (Ambulation): Independent Stairs: Independent Prior Devices Use: Walker (4WW) Pt reports she is mod (I) with functional mobility and gait with 4WW "But I have frequent falls, I always catch that foot". Pt declines to wear AFO citing gnosticist reasons (see OT eval). PT Evaluation-Current Subjective Pt in bed, agreeable. Pain Numeric Pain Scale: 8 Location: Left Location Body Site: Arm Pain Description: Sharp Pt/Family Goals Home Objective Patient Orientation: Person, Place, Time, Situation Attachments: Oxygen ROM/Strength ROM Upper Extremities See OT ROM Lower Extremities Grossly WFL for mobility. Very limited AROM (L) ankle Strength Upper Extremities See OT Strength Lower Extremities (R) ankle, knee and hip flexion grossly 4-/5 (L) knee grossly 3+/5, (L) ankle trace to 0/5 Integumentary/Posture Integumentary See nurses' notes Posture Kyphotic Sensory Vision: Hearing: Functional Hand Dominance: Right Transfers Sit to Lying (QC): 1 Lying to Sitting/Side of Bed(Q: 2 Sit to Stand (QC): 1 Supine->sit: max A x 1, sit->Supine: max A x 2, max A x 2 to position in bed. Sit<->stand: min A x 2 with FINISH PHOTOGRAPHER on (R). Pt able to sidestep to HOB with A x 2 and FINISH PHOTOGRAPHER, dragging (L) foot. Gait Does the Patient Walk?: Yes Mode of Locomotion: Walk Anticipated Mode of Locomotion: Walk Comments/Gait Description Sidesteps to HOB with FINISH PHOTOGRAPHER on (R), assist x 2 on either side of Pt. Unsteady, difficulty clearing (L) LE. Wheelchair Training Does the Pt Use a Wheelchair?: No Balance Sitting Static: Normal Sitting Dynamic: Normal Standing Static: Fair Standing Dynamic: Poor Treatment Eval. Co-treat with OT due to level of assist required. OT assessing ADLs, UE, PT addressing functional mobility, LE. Returned to bed with O2 in situ, needs me t. Assessment/Needs Pt would benefit from skilled PT to improve functional strength and safety with functional mobility to increase (I), decrease fall risk. Pt would likely benefit from AFO but Pt refuses. Ambulation likely limited by inability to utilize (L) UE on assistive device and Pt's decreased balance, decreased functional use of (L) LE. Rehab Potential: Fair PT Short Term Goals Short Term Goals Time Frame: Jul 02, 2020 Roll Left & Right: 5 Sit to lyin Lying to sitting on side of be: 6 Sit to stand: 4 PT Penitent[facility] Goals Conductor Freight Goals PT Conductor Freight Goals Time Frame: Jul 09, 2020 Roll Left & Right (QC): 6 Sit to Lying (QC): 6 Lying-Sitting on Side/Bed(QC): 6 Sit to Stand (QC): 6 Chair/Kur-el-Xzwdv Xfer(QC): 6 Toilet Transfer (QC): 4 Car Transfer (QC): 4 Does the Patient Walk: No and Walking Goal IS indicated Walk 10 feet (QC): 4 Walk 50ft with 2 Turns (QC): 4 Walk 150 ft (QC): 88 Walking 10ft on Uneven Surface: 88 1 Step (curb) (QC): 2 4 Steps (QC): 9 12 Steps (QC): 9 Picking up an Object (QC): 9 Does the Pt use WC or Scooter?: No Wheel 50 feet with 2 turns (QC: 9 Type: N/A Wheel 150 feet: 9 Type: N/A PT goals established to allow safe discharge with decreased caregiver burden. PT Plan Problem List Problem List: Activity Tolerance, Functional Strength, Safety, Balance, Gait, Transfer, Bed Mobility, ROM Treatment/Plan Treatment Plan: Continue Plan of Care Treatment Plan: Bed Mobility, Education, Functional Activity Christi, Functional Strength, Gait, Safety, Therapeutic Exercise, Transfers Treatment Duration: Jul 09, 2020 Frequency: 6 times per week Estimated Hrs Per Day: .25 hour per day Patient and/or Family Agrees t: Yes Safety Risks/Education Patient Education: Safety Issues Teaching Recipient: Patient Teaching Methods: Discussion Response to Teaching: Reinforcement Needed Discharge Recommendations Therapy Discharge Recommendati: Post Acute PT Barriers to Progress (L) foot drop, high fall rate prior to admission, (L) shoulder pain Time/GCodes Time In: 1048 Time Out: 1112 Total Billed Treatment Time: 24 Total Billed Treatment 1, EVHIGHC Co-treat with OT due to level of assist required. OT assessing UE/ADLs, PT addressing functional mobility, LE. ANDREW RIVAS DPIvana Jun 25, 2020 15:48
[2020-06-25 16:19] VITALS: BP 101/63
[2020-06-25] MEDS: ENOXAPARIN 40 MG/0.4 ML (LOVENOX) SYR SC SCH (20:08)
[2020-06-25] MEDS: hydrOXYzine (VISTARIL/ATARAX) 25 MG capsule/tablet PO SCH (20:08)
[2020-06-25] MEDS: MELATONIN 3 MG TABLET PO PRN (20:08)
[2020-06-25] MEDS: MONTELUKAST 10 MG (SINGULAIR) TAB PO SCH (20:09)
[2020-06-25] MEDS ORDERED: fentaNYL INJECTION 100 MCG/2 ML AMP ONE (21:42)
[2020-06-25] MEDS: fentaNYL INJECTION 100 MCG/2 ML AMP IVP PRN (21:51)
[2020-06-25 23:42] VITALS: BP 113/69
[2020-06-26] MEDS: fentaNYL INJECTION 100 MCG/2 ML AMP IVP PRN ×3 (02:57→19:22)
[2020-06-26] MEDS: inSUlin ASPART (NovoLOG) 1 UNIT/0.01 ML (CHARGE PER UNIT) SC SCH ×4 (06:09→21:58)
[2020-06-26 07:27] VITALS: BP 123/72
[2020-06-26] MEDS: LEVOTHYROXINE 88 MCG (LEVOTHORID) TAB PO SCH (07:44)
[2020-06-26] MEDS: lisINopril 20 MG (PRINIVIL) TABLET PO SCH (07:44)
[2020-06-26] MEDS: SENNOSIDES 8.6 MG (SENOKOT) TAB PO SCH ×2 (07:48→19:35)
[2020-06-26] MEDS: DOCUSATE SODIUM 100 MG (COLACE) CAP PO SCH ×2 (07:48→19:35)
[2020-06-26] MEDS: FLUTICASONE NASAL SPRAY (FLONASE) 16 GM BTL NS SCH (07:51)
[2020-06-26] MEDS: VENlafaxine XR 75 MG (EFFEXOR XR) CAP PO SCH (07:52)
[2020-06-26] MEDS: traZODone 50 MG (DESYREL) TAB PO SCH ×2 (07:52→19:58)
--- NOTE | 2020-06-26 12:53 | Progress Note - Hospitalist ---
Subjective HPI/CC On Admission Date Seen by Provider: Jun 26, 2020 Time Seen by Provider: 10:25 Rosa Downey is a 69-year-old female with past medical history of hypertension, hyperlipidemia, hypothyroidism, insomnia, who presented after having a ground- level fall. She reports that she is slowly been getting more weak over the past several weeks. She denies any syncope. She denies any lightheadedness or dizziness. She uses a walker to get around her house. She denies any fevers or chills. She denies any shortness of breath or cough. She denies any chest pain. She had some nausea after taking her pain medicine this morning. She denies any vomiting. She denies any abdominal pain. She denies any diarrhea. She has a history of a brain aneurysm and residual left-sided weakness. Subjective/Events-last exam She continues have pain in her left arm with movement. She denies any pain at rest. She is feeling weak. She denies any fevers or chills. She denies any shortness of breath or cough. She denies any abdominal pain, nausea, or vomiting. She has no other complaints or concerns. Objective Exam Vital Signs Vital Signs Date Time Temp Pulse Resp B/P (MAP) Pulse Ox O2 Delivery O2 Flow Rate FiO2 06/26/20 08:00 93 Nasal Cannula 2.00 06/26/20 07:27 37.1 92 18 123/72 (89) Capillary Refill : Less Than 3 SecondsLess Than 3 Seconds General Appearance: No Apparent Distress, WD/WN Respiratory: Lungs Clear, Normal Breath Sounds, No Respiratory Distress Cardiovascular: Regular Rate, Rhythm, No Edema, No Murmur Gastrointestinal: Normal Bowel Sounds, Non Tender, Soft Extremity: Other (Left arm in sling) Neurologic/Psychiatric: Alert, Oriented x3, Normal Mood/Affect, Motor Weakness Skin: Normal Color, Warm/Dry Results/Procedures Lab Patient resulted labs reviewed. Imaging: Reviewed Imaging Report Assessment/Plan Assessment and Plan Assess & Plan/Chief Complaint Proximal humerus fracture Ground-level fall Debility XR with nondisplaced proximal humerus fracture Orthopedic surgery consulted, recommends sling and outpatient follow-up Pain regimen in place PT/OT consulted, appreciate assistance Likely discharge to [facility] Saturday Hypertension Hyperlipidemia Hypothyroidism Insomnia Continue home meds DVT prophylaxis: Lovenox Diagnosis/Problems Diagnosis/Problems (1) Proximal humerus fracture Status: Acute Qualifiers: Encounter type: initial encounter Fracture type: closed Fracture morphology: unspecified fracture morphology Laterality: left Qualified Codes: S42.202A - Unspecified fracture of upper end of left humerus, initial encounter for closed fracture (2) Fall from ground level Status: Acute (3) Debility Status: Acute (4) HTN (hypertension) Status: Chronic Qualifiers: Hypertension type: essential hypertension Qualified Codes: I10 - Essential (primary) hypertension (5) HLD (hyperlipidemia) Status: Chronic (6) Insomnia Status: Chronic Clinical Quality Measures DVT/VTE Risk/Contraindication: Risk Factor Score Per Nursin RFS Level Per Nursing on Admit: 4+=Very High YOSELIN TERRAZAS MD Jun 26, 2020 12:53
[2020-06-26 16:23] VITALS: BP 90/50
[2020-06-26] MEDS: MELATONIN 3 MG TABLET PO PRN (19:55)
[2020-06-26] MEDS: ENOXAPARIN 40 MG/0.4 ML (LOVENOX) SYR SC SCH (19:55)
[2020-06-26] MEDS: MONTELUKAST 10 MG (SINGULAIR) TAB PO SCH (19:56)
[2020-06-26] MEDS: hydrOXYzine (VISTARIL/ATARAX) 25 MG capsule/tablet PO SCH (19:56)
[2020-06-27 00:02] VITALS: BP 100/57
[2020-06-27] MEDS: inSUlin ASPART (NovoLOG) 1 UNIT/0.01 ML (CHARGE PER UNIT) SC SCH ×4 (05:47→20:14)
[2020-06-27 07:44] VITALS: BP 122/58
--- NOTE | 2020-06-27 08:47 | NUR ---
Pt concerned about medical bills. She has Medicare HM0 plan with [facility] and [place] Medicaid but has a $1453 dollar spenddown monthly to meet before is activated. Referred to Financial Assistance Counselor who will assist her today.
[2020-06-27] MEDS: DOCUSATE SODIUM 100 MG (COLACE) CAP PO SCH ×2 (08:58→20:13)
[2020-06-27] MEDS: SENNOSIDES 8.6 MG (SENOKOT) TAB PO SCH ×2 (08:58→20:13)
[2020-06-27] MEDS: traZODone 50 MG (DESYREL) TAB PO SCH (09:03)
[2020-06-27] MEDS: lisINopril 20 MG (PRINIVIL) TABLET PO SCH (09:03)
[2020-06-27] MEDS: VENlafaxine XR 75 MG (EFFEXOR XR) CAP PO SCH (09:03)
[2020-06-27] MEDS: LEVOTHYROXINE 88 MCG (LEVOTHORID) TAB PO SCH (09:03)
[2020-06-27] MEDS: FLUTICASONE NASAL SPRAY (FLONASE) 16 GM BTL NS SCH (09:03)
[2020-06-27] MEDS ORDERED: FLUT16SP22 NSEACH (09:12)
[2020-06-27] MEDS ORDERED: PEDI18TA2 PO (09:12)
[2020-06-27] MEDS ORDERED: POLY15DR27 OU (09:12)
[2020-06-27] MEDS ORDERED: NAPR-915 PO (09:12)
[2020-06-27] MEDS ORDERED: ASCO10006 PO (09:12)
[2020-06-27] MEDS ORDERED: CETI10TA21 PO (09:12)
[2020-06-27] MEDS ORDERED: INUL1TAB4 PO (09:12)
[2020-06-27] MEDS ORDERED: IRON150C3 PO (09:12)
[2020-06-27] MEDS ORDERED: LACT1CAP91 PO (09:15)
[2020-06-27] MEDS ORDERED: RANITIDINE PO (09:15)
--- NOTE | 2020-06-27 09:36 | NUR ---
SPOKE WITH THE PT (SHE HAD A MED LIST FROM 2017 THAT WAS NOT CURRENT- THEREFORE I DID NOT INCLUDE IT ON THE CHART, BUT I DID USE IT A BASE TO GET INFORMATION) AND WENT THRU THE EXT MED HISTORY TO COMPLETE THE MED REC PT IS NO LONGER TAKING THE FOLLOWING MEDS EVEN THOUGH THEY ARE ON THE EXT MED HISTORY: AMBIEN 10MG, TRAZODONE 150MG (SHE IS NOW TAKING 50MG), SINGULAR 10MG, SHE WAS SWITCHED FROM SINGULAR TO ZAFIRLUKAST- AND SHE STARTED WITH 10 MG BID BUT HAS INCREASED TO 20 MG BID. ALL OTHER MEDS ARE LISTED ON THE EXT MED HISTORY AND THE PT WAS ABLE TO TELL ME HOW SHE TAKES EACH OTC MEDS: ARTIFICIAL TEARS VITAMIN C FLINTSTONES MTV W/ IRON FERREX 150MG ZYRTEC FIBER GUMMY PROBIOTIC
--- NOTE | 2020-06-27 09:44 | Physical Therapy Daily Note ---
PT Daily Note-Current Subjective Patient states, "I'm going to yell because I can't help it." Pain Numeric Pain Scale: 5-Moderate Pain Location: Left Location Body Site: Shoulder Pain Description: Acute Mental Status Patient Orientation: Person, Time, Situation Attachments: Oxygen, Roldan Catheter Transfers SCALE: Activities may be completed with or without assistive devices. 6-Arumtbnoog-cggzxqp completes the activity by him/herself with no assistance from a helper. 5-Set-up or Clean-up Assistance-helper sets up or cleans up; patient completes activity. [place] assists only prior to or following the activity. 4-Supervision or Touching Assistance-helper provides verbal cues and/or touching/steadying and/or contact guard assistance as patient completes activity. Assistance may be provided throughout the activity or intermittently. 3-Partial/Moderate Assistance-helper does LESS THAN HALF the effort. [place] lifts, holds or supports trunk or limbs, but provides less than half the effort. 2-Substantial/Maximal Assistance-helper does MORE THAN HALF the effort. [place] lifts or holds trunk or limbs and provides more than half the effort. 2-Ihbribxwu-vnivmt does ALL the effort. Patient does none of the effort to complete the activity. Or, the assistance of 2 or more helpers is required for the patient to complete the activity. If activity was not attempted, code reason: 7-Patient Refused. 9-Not Applicable-not attempted and the patient did not perform the activity before the current illness, exacerbation or injury. 10-Not Attempted due to Environmental Limitations-(lack of equipment, weather restraints, etc.). 88-Not Attempted due to Medical Conditions or Safety Concerns. Roll Left & Right (QC): 5 Lying to Sitting/Side of Bed(Q: 5 Sit to Stand (QC): 3 Chair/Oxj-ho-Ouwak Xfer(QC): 3 Weight Bearing Right Lower Extremity: Right Weight Bearing/Tolerated Left Lower Extremity: Left Weight Bearing/Tolerated NWB (L) UE Gait Training Does the Patient Walk?: Yes Distance: 25' Walk 10 feet (QC): 3 Gait Assistive Device: None left LE lag/NWB left UE in sling Exercises Seated Therapy Exercises: Long arc quads Seated Reps: 15 Assessment Patient is up in recliner with needs met. Patient tolerates minimal activity. PT Short Term Goals Short Term Goals Time Frame: Jul 02, 2020 Roll Left & Right: 5 Sit to lyin Lying to sitting on side of be: 6 Sit to stand: 4 PT Group Home Goals Group Home Goals PT Group Home Goals Time Frame: Jul 09, 2020 Roll Left & Right (QC): 6 Sit to Lying (QC): 6 Lying-Sitting on Side/Bed(QC): 6 Sit to Stand (QC): 6 Chair/Cyd-xe-Vulqb Xfer(QC): 6 Toilet Transfer (QC): 4 Car Transfer (QC): 4 Does the Patient Walk: No and Walking Goal IS indicated Walk 10 feet (QC): 4 Walk 50ft with 2 Turns (QC): 4 Walk 150 ft (QC): 88 Walking 10ft on Uneven Surface: 88 1 Step (curb) (QC): 2 4 Steps (QC): 9 12 Steps (QC): 9 Picking up an Object (QC): 9 Does the Pt use WC or Scooter?: No Wheel 50 feet with 2 turns (QC: 9 Type: N/A Wheel 150 feet: 9 Type: N/A PT Plan Treatment/Plan Treatment Plan: Continue Plan of Care Treatment Plan: Bed Mobility, Education, Functional Activity Christi, Functional Strength, Gait, Safety, Therapeutic Exercise, Transfers Treatment Duration: Jul 09, 2020 Frequency: 6 times per week Estimated Hrs Per Day: .25 hour per day Patient and/or Family Agrees t: Yes Time/GCodes Time In: 902 Time Out: 912 Total Billed Treatment Time: 10 Total Billed Treatment 1 visit GT 10 min EFRAIN ALVARES PT Jun 27, 2020 09:44
--- NOTE | 2020-06-27 10:20 | NUR ---
OXYIR 10 PO FOR C/O PAIN.
--- NOTE | 2020-06-27 11:16 | Progress Note - Hospitalist ---
Subjective HPI/CC On Admission Date Seen by Provider: Jun 27, 2020 Time Seen by Provider: 11:14 Rosa Downey is a 69-year-old female with past medical history of hypertension, hyperlipidemia, hypothyroidism, insomnia, who presented after having a ground- level fall. She reports that she is slowly been getting more weak over the past several weeks. She denies any syncope. She denies any lightheadedness or dizziness. She uses a walker to get around her house. She denies any fevers or chills. She denies any shortness of breath or cough. She denies any chest pain. She had some nausea after taking her pain medicine this morning. She denies any vomiting. She denies any abdominal pain. She denies any diarrhea. She has a history of a brain aneurysm and residual left-sided weakness. Subjective/Events-last exam Pt reports feeling well. Discussed discharge plan with her and awaiting information from [facility] Objective Exam Vital Signs Vital Signs Date Time Temp Pulse Resp B/P (MAP) Pulse Ox O2 Delivery O2 Flow Rate FiO2 06/27/20 08:00 93 Room Air 06/27/20 07:44 36.9 90 18 122/58 (79) 2.00 Capillary Refill : Less Than 3 SecondsLess Than 3 Seconds General Appearance: No Apparent Distress, WD/WN Respiratory: Lungs Clear, No Respiratory Distress Cardiovascular: Regular Rate, Rhythm, No Murmur Gastrointestinal: Normal Bowel Sounds, Soft Extremity: Other (left arm in sling) Neurologic/Psychiatric: Alert, Oriented x3 Results/Procedures Lab Patient resulted labs reviewed. Imaging: Reviewed Imaging Report Assessment/Plan Assessment and Plan Assess & Plan/Chief Complaint Proximal humerus fracture Ground-level fall Debility XR with nondisplaced proximal humerus fracture Orthopedic surgery consulted, recommends sling and outpatient follow-up Pain regimen in place- pain well controlled PT/OT consulted, appreciate assistance Likely discharge to [facility] once they have approved Hypertension Hyperlipidemia Hypothyroidism Insomnia Continue home meds DVT prophylaxis: Lovenox Clinical Quality Measures DVT/VTE Risk/Contraindication: Risk Factor Score Per Nursin RFS Level Per Nursing on Admit: 4+=Very High ROBLES CONLEY MD Jun 27, 2020 11:16
--- NOTE | 2020-06-27 11:33 | NUR ---
CM/SS: Visited with pt as to plan for discharge Plan: Undetermined at this time. Referral has been made to [facility] Summary: Pt is updated on the status of the referral to [facility]. Pt is aware that additional information is faxed to them for review. At this point we are waiting on information back from [facility]. Pt reports seeing son over the weekend from [place]. She is able to do some life review. Pt reports also working with physical therapy and Occupational therapy. This worker will follow up.
--- NOTE | 2020-06-27 11:43 | Occupational Ther Daily Note ---
OT Current Status-Daily Note Subjective Pt alert, sitting up in recliner. Pt agrees to therapy. No c/o pain at this time. Mental Status/Objective Patient Orientation: Person, Place, Time, Situation Attachments: Roldan Catheter, IV ADL-Treatment Therapy Code Descriptions/Definitions Functional [place] Measure: 0=Not Assessed/NA 4=Minimal Assistance 1=Total Assistance 5=Supervision or Setup 2=Maximal Assistance 6=Modified [place] 3=Moderate Assistance 7=Complete IndependenceSCALE: Activities may be completed with or without assistive devices. 7-Gbxkwybktk-ymetqel completes the activity by him/herself with no assistance from a helper. 5-Set-up or Clean-up Assistance-helper sets up or cleans up; patient completes activity. [place] assists only prior to or following the activity. 4-Supervision or Touching Assistance-helper provides verbal cues and/or touching/steadying and/or contact guard assistance as patient completes activ ity. Assistance may be provided throughout the activity or intermittently. 3-Partial/Moderate Assistance-helper does LESS THAN HALF the effort. [place] lifts, holds or supports trunk or limbs, but provides less than half the effort. 2-Substantial/Maximal Assistance-helper does MORE THAN HALF the effort. [place] lifts or holds trunk or limbs and provides more than half the effort. 5-Fenpvzkyt-zsfbfi does ALL the effort. Patient does none of the effort to complete the activity. Or, the assistance of 2 or more helpers is required for the patient to complete the activity. If activity was not attempted, code reason: 7-Patient Refused. 9-Not Applicable-not attempted and the patient did not perform the activity before the current illness, exacerbation or injury. 10-Not Attempted due to Environmental Limitations-(lack of equipment, weather restraints, etc.). 88-Not Attempted due to Medical Conditions or Safety Concerns. Other Treatment Educated pt on AROM of wrist, hand and fingers. Pt anxious about movement. Pt has increased tone in L UE from previous incident, educated pt that moving wrist/hand/fingers would keep tone decreased and increase ROM. Pt able to extend fingers with verbal cue to stay on task. AAROM for hand and wrist. 1 set 20 reps. After session, pt sitting in recliner with call light/phone in reach. All needs met in room. Education OT Patient Education: Exercise program Teaching Recipient: Patient Teaching Methods: Demonstration, Discussion Response to Teaching: Verbalize Understanding, Return Demonstration, Reinforcement Needed OT Short Term Goals Short Term Goals Time Frame: Jul 02, 2020 Eatin Oral hygiene: 4 Toileting hygiene: 3 Shower/bathe self: 3 Upper body dressin Lower body dressin Putting on/taking off footwear: 3 OT Hotel Front Desk Clerk Goals Hotel Front Desk Clerk Goals Time Frame: Jul 09, 2020 Eating (QC): 5 Oral Hygiene (QC): 5 Toileting Hygiene (QC): 4 Shower/Bathe Self (QC): 3 Upper Body Dressing (QC): 4 Lower Body Dressing (QC): 4 On/Off Footwear (QC): 4 Goals written to not exceed independence, as pt. is not independent in home setting previously, and requires caregiving support. Additional Goals: 1-Demonstrate ADL Tasks, 2-Verbalize Understanding, 3- ImproveStrength/Christi 1=Demonstrate adherence to instructed precautions during ADL tasks. 2=Patient will verbalize/demonstrate understanding of assistive devices/modifications for ADL. 3=Patient will improve strength/tolerance for activity to enable patient to perform ADL's. OT Education/Plan Problem List/Assessment Assessment: Decreased Activ Tolerance, Decreased UE Strength, Impaired Self- Care Skills, Restricted Funct UE ROM Discharge Recommendations Plan/Recommendations: Continue POC Treatment Plan/Plan of Care Patient would benefit from OT for education, treatment and training to promote independence in ADL's, mobility, safety and/or upper extremity function for ADL's. Plan of Care: ADL Retraining, Functional Mobility, UE Funct Exercise/Act Treatment Duration: Jul 09, 2020 Frequency: 5 times per week Estimated Hrs Per Day: .25 hour per day Agreement: Yes Rehab Potential: Fair Time/GCodes Start Time: 10:45 Stop Time: 10:55 Total Time Billed (hr/min): 10 Billed Treatment Time 1 visit-EX 1 (10 min) AMBER OCHOA Jun 27, 2020 11:43
[2020-06-27 15:40] VITALS: BP 102/63
[2020-06-27] MEDS: ACETAMINOPHEN 325 MG TABLET PO PRN (17:53)
--- NOTE | 2020-06-27 17:53 | NUR ---
TYLENOL PO PER PT REQUEST FOR GENERAL DISCOMFORT.
[2020-06-27] MEDS: MONTELUKAST 10 MG (SINGULAIR) TAB PO SCH (20:13)
[2020-06-27] MEDS: hydrOXYzine (VISTARIL/ATARAX) 25 MG capsule/tablet PO SCH (20:13)
[2020-06-27] MEDS: ENOXAPARIN 40 MG/0.4 ML (LOVENOX) SYR SC SCH (20:14)
--- NOTE | 2020-06-27 20:24 | Discharge Inst-Skilled Nursing ---
Discharge Inst-Skilled NF Chief Complaint Rosa Downey is a 69-year-old female with past medical history of hypertension, hyperlipidemia, hypothyroidism, insomnia, who presented after having a ground- level fall. She reports that she is slowly been getting more weak over the past several weeks. She denies any syncope. She denies any lightheadedness or dizziness. She uses a walker to get around her house. She denies any fevers or chills. She denies any shortness of breath or cough. She denies any chest pain. She had some nausea after taking her pain medicine this morning. She denies any vomiting. She denies any abdominal pain. She denies any diarrhea. She has a history of a brain aneurysm and residual left-sided weakness. Consult/Follow Up/Orders Skilled NF Admit to: [facility] [place] Certification (SNF) I certify that SNF services are required to be given on an inpatient basis because of the above named patient's need for long-term care on a continuing basis for the conditions(s) for which he/she was receiving inpatient hospital services prior to his/her transfer to the SNF. [facility] Facility Order: Nursing Services, Digital Pre Press Operator-Evaluate & Treat, Physical Therapy-Evaluate & Treat Oxygen Delivery Method: Nasal Cannula Oxygen Flow Rate L/min (Range): 2lpmHS Discharge Diet: No Restrictions Resuscitation Status: Do Not Resuscitate New & Resume Previous Orders Robles Conley Jun 27, 2020 20:22 Pneu Vac Indicated: Yes ROBLES CONLEY MD Jun 27, 2020 20:24
[2020-06-27] MEDS ORDERED: OXYC5TAB96 PO (20:26)
[2020-06-27] MEDS ORDERED: traZODone 50 MG (DESYREL) TAB PO SCH (21:00)
[2020-06-28] VITALS: BP 136/83
[2020-06-28] MEDS: fentaNYL INJECTION 100 MCG/2 ML AMP IVP PRN (02:25)
[2020-06-28] MEDS: inSUlin ASPART (NovoLOG) 1 UNIT/0.01 ML (CHARGE PER UNIT) SC SCH ×2 (05:54→12:37)
[2020-06-28 08:00] VITALS: BP 154/68
[2020-06-28] MEDS: FLUTICASONE NASAL SPRAY (FLONASE) 16 GM BTL NS SCH (08:45)
[2020-06-28] MEDS: lisINopril 20 MG (PRINIVIL) TABLET PO SCH (08:46)
[2020-06-28] MEDS: DOCUSATE SODIUM 100 MG (COLACE) CAP PO SCH (08:46)
[2020-06-28] MEDS: LEVOTHYROXINE 88 MCG (LEVOTHORID) TAB PO SCH (08:46)
[2020-06-28] MEDS: VENlafaxine XR 75 MG (EFFEXOR XR) CAP PO SCH (08:46)
[2020-06-28] MEDS: SENNOSIDES 8.6 MG (SENOKOT) TAB PO SCH (08:46)
--- NOTE | 2020-06-28 10:20 | Physical Therapy Daily Note ---
PT Daily Note-Current Subjective Patient is very agreeable to participate with therapy. Pain Numeric Pain Scale: 5-Moderate Pain Location: Left Location Body Site: Shoulder Pain Description: Acute Mental Status Patient Orientation: Person, Time, Situation Attachments: Roldan Catheter Transfers SCALE: Activities may be completed with or without assistive devices. 4-Lgnloebour-uzttrba completes the activity by him/herself with no assistance from a helper. 5-Set-up or Clean-up Assistance-helper sets up or cleans up; patient completes activity. [place] assists only prior to or following the activity. 4-Supervision or Touching Assistance-helper provides verbal cues and/or touching/steadying and/or contact guard assistance as patient completes activity. Assistance may be provided throughout the activity or intermittently. 3-Partial/Moderate Assistance-helper does LESS THAN HALF the effort. [place] lifts, holds or supports trunk or limbs, but provides less than half the effort. 2-Substantial/Maximal Assistance-helper does MORE THAN HALF the effort. [place] lifts or holds trunk or limbs and provides more than half the effort. 4-Xawcxdcco-jupnlz does ALL the effort. Patient does none of the effort to complete the activity. Or, the assistance of 2 or more helpers is required for the patient to complete the activity. If activity was not attempted, code reason: 7-Patient Refused. 9-Not Applicable-not attempted and the patient did not perform the activity before the current illness, exacerbation or injury. 10-Not Attempted due to Environmental Limitations-(lack of equipment, weather restraints, etc.). 88-Not Attempted due to Medical Conditions or Safety Concerns. Lying to Sitting/Side of Bed(Q: 5 Sit to Stand (QC): 2 Chair/Zpr-cq-Ekklk Xfer(QC): 2 patient slightly retropulsive with sit to stand Weight Bearing Right Lower Extremity: Right Weight Bearing/Tolerated Left Lower Extremity: Left Weight Bearing/Tolerated NWB (L) UE Gait Training Does the Patient Walk?: Yes Distance: 30' mod assist with patient utilizing PT for stability. Noted left LE lag Exercises Seated Therapy Exercises: Ankle pumps (left stretching due to tone), Long arc quads (left LE AAROM with stretching due to tone), Hip flexion Seated Reps: 15 (3 sets) Assessment Patient tolerated treatment well and is up in recliner with needs met. PT Short Term Goals Short Term Goals Time Frame: Jul 02, 2020 Roll Left & Right: 5 Sit to lyin Lying to sitting on side of be: 6 Sit to stand: 4 PT Correspondence School Teacher Goals Snf Goals PT Correspondence School Teacher Goals Time Frame: Jul 09, 2020 Roll Left & Right (QC): 6 Sit to Lying (QC): 6 Lying-Sitting on Side/Bed(QC): 6 Sit to Stand (QC): 6 Chair/Mzg-az-Kfije Xfer(QC): 6 Toilet Transfer (QC): 4 Car Transfer (QC): 4 Does the Patient Walk: No and Walking Goal IS indicated Walk 10 feet (QC): 4 Walk 50ft with 2 Turns (QC): 4 Walk 150 ft (QC): 88 Walking 10ft on Uneven Surface: 88 1 Step (curb) (QC): 2 4 Steps (QC): 9 12 Steps (QC): 9 Picking up an Object (QC): 9 Does the Pt use WC or Scooter?: No Wheel 50 feet with 2 turns (QC: 9 Type: N/A Wheel 150 feet: 9 Type: N/A PT Plan Treatment/Plan Treatment Plan: Continue Plan of Care Treatment Plan: Bed Mobility, Education, Functional Activity Christi, Functional Strength, Gait, Safety, Therapeutic Exercise, Transfers Treatment Duration: Jul 09, 2020 Frequency: 6 times per week Estimated Hrs Per Day: .25 hour per day Patient and/or Family Agrees t: Yes Time/GCodes Time In: 950 Time Out: 1008 Total Billed Treatment Time: 18 Total Billed Treatment 1 visit FA 18 min EFRAIN ALVARES PT Jun 28, 2020 10:20
--- NOTE | 2020-06-28 10:51 | Occupational Ther Daily Note ---
OT Current Status-Daily Note Subjective Pt alert sitting in chair. Pt agreed to therapy. No c/o pain at this time. Asked at end of session about pain pills, nrsg aware. Mental Status/Objective Patient Orientation: Person, Place, Time, Situation Attachments: Roldan Catheter ADL-Treatment Pt agrees to complete oral care after encouragement to complete on own after set up. Pt required multiple cues for strategies using L fingers/hand to assist with completing tasks required to place dentures. Demonstrated ability to complete oral care by self after set up. Pt then ambulated with hand hold around room. Mod A for sit to supine. Verbal cues to position self to get into bed. Pt able to go from EOB to supine with SBA, max A to scoot self toward L side. After session, pt lying in bed with call light/phone in reach. All needs met in room. Therapy Code Descriptions/Definitions Functional Villalba Measure: 0=Not Assessed/NA 4=Minimal Assistance 1=Total Assistance 5=Supervision or Setup 2=Maximal Assistance 6=Modified Villalba 3=Moderate Assistance 7=Complete IndependenceSCALE: Activities may be completed with or without assistive devices. 5-Fbjdcipqjt-qjdqdbn completes the activity by him/herself with no assistance from a helper. 5-Set-up or Clean-up Assistance-helper sets up or cleans up; patient completes activity. [place] assists only prior to or following the activity. 4-Supervision or Touching Assistance-helper provides verbal cues and/or touching/steadying and/or contact guard assistance as patient completes activity. Assistance may be provided throughout the activity or intermittently. 3-Partial/Moderate Assistance-helper does LESS THAN HALF the effort. [place] lifts, holds or supports trunk or limbs, but provides less than half the effort. 2-Substantial/Maximal Assistance-helper does MORE THAN HALF the effort. [place] lifts or holds trunk or limbs and provides more than half the effort. 5-Dlecpevtx-dyyuum does ALL the effort. Patient does none of the effort to complete the activity. Or, the assistance of 2 or more helpers is required for the patient to complete the activity. If activity was not attempted, code reason: 7-Patient Refused. 9-Not Applicable-not attempted and the patient did not perform the activity before the current illness, exacerbation or injury. 10-Not Attempted due to Environmental Limitations-(lack of equipment, weather restraints, etc.). 88-Not Attempted due to Medical Conditions or Safety Concerns. Oral Hygiene (QC): 4 OT Short Term Goals Short Term Goals Time Frame: Jul 02, 2020 Eatin Oral hygiene: 4 Toileting hygiene: 3 Shower/bathe self: 3 Upper body dressin Lower body dressin Putting on/taking off footwear: 3 OT Senior Care Goals Senior Care Goals Time Frame: Jul 09, 2020 Eating (QC): 5 Oral Hygiene (QC): 5 Toileting Hygiene (QC): 4 Shower/Bathe Self (QC): 3 Upper Body Dressing (QC): 4 Lower Body Dressing (QC): 4 On/Off Footwear (QC): 4 Goals written to not exceed independence, as pt. is not independent in home setting previously, and requires caregiving support. Additional Goals: 1-Demonstrate ADL Tasks, 2-Verbalize Understanding, 3- ImproveStrength/Christi 1=Demonstrate adherence to instructed precautions during ADL tasks. 2=Patient will verbalize/demonstrate understanding of assistive devices/m odifications for ADL. 3=Patient will improve strength/tolerance for activity to enable patient to perform ADL's. OT Education/Plan Problem List/Assessment Assessment: Decreased Activ Tolerance, Decreased UE Strength, Impaired Bed Mobility, Impaired Cognition, Impaired Coordination, Impaired Funct Balance, Impaired Self-Care Skills, Restricted Funct UE ROM Discharge Recommendations Plan/Recommendations: Continue POC Treatment Plan/Plan of Care Patient would benefit from OT for education, treatment and training to promote independence in ADL's, mobility, safety and/or upper extremity function for ADL's. Plan of Care: ADL Retraining, Functional Mobility, UE Funct Exercise/Act Treatment Duration: Jul 09, 2020 Frequency: 5 times per week Estimated Hrs Per Day: .25 hour per day Agreement: Yes Rehab Potential: Fair Time/GCodes Start Time: 10:15 Stop Time: 10:40 Total Time Billed (hr/min): 25 Billed Treatment Time 1 visit-ADL 1 (17 min) FA 1 (8min) AMBER OCHOA Jun 28, 2020 10:51
--- NOTE | 2020-06-28 12:38 | NUR ---
CM/SS: Visited with pt as to plan for discharge Plan: Undetermined at this time. Awaiting authorization from insurance for skilled bed at [place]. Summary: Follow up call to Gerber - administrator social welfare [facility] as to placement. He reports he has not heard back from the insurance. He is requested to follow up with the insurance. He reports the business office is able to follow up. Pt feel like nothing is being done as far as getting her placed somewhere. Pt is explained the process. Pt wants this worker to call his son. Telephone call to son Guillermo he is explained the process for getting pt to [facility] as we are waiting on authorization from insurance. Son verbalizes understanding, and request that someone can let him know when pt is being transferred. Pt feels like a weight has been lifted as son is in the loop. Telephone call to [facility] [place] [facility] - left message as pt wanted to talk with Gerber the administrator social welfare. He is left the pts telephone number in her room if he is able to call back. This worker will follow up.
--- NOTE | 2020-06-28 14:44 | Discharge Summary ---
Diagnosis/Chief Complaint Date of Admission Jun 23, 2020 at 14:50 Date of Discharge Discharge Date: Jun 28, 2020 Admission Diagnosis Proximal humerus fracture Primary Care Irene Swann MD Discharge Diagnosis (1) Proximal humerus fracture Status: Acute (2) Fall from ground level Status: Acute (3) Debility Status: Acute (4) HTN (hypertension) Status: Chronic (5) HLD (hyperlipidemia) Status: Chronic (6) Insomnia Status: Chronic Discharge Summary Discharge Physical Exam Allergies: Coded Allergies: Sulfa (Sulfonamide Antibiotics) (Verified Allergy, Unknown, 06/23/20) codeine (Verified Allergy, Unknown, 06/23/20) meperidine (Verified Allergy, Unknown, 06/23/20) Uncoded Allergies: NOVACAINE (Allergy, Unknown, 04/01/18) Vitals & I&Os Vital Signs Date Time Temp Pulse Resp B/P (MAP) Pulse Ox O2 Delivery O2 Flow Rate FiO2 06/28/20 08:00 37.0 76 16 154/68 (96) 97 Room Air 06/28/20 08:00 2.00 Hospital Course Labs (last 24 hrs) Laboratory Tests 06/27/20 15:41: Glucometer 136H 06/27/20 19:56: Glucometer 192H 06/28/20 05:02: Glucometer 124H 06/28/20 11:00: Glucometer 136H Patient resulted labs reviewed. Pending Labs Laboratory Tests 06/28/20 11:00: Glucometer 136 Imaging: Reviewed Imaging Report Discharge Home Medications: Active Scripts Active Oxycodone IR (Oxycodone HCl) 5 Mg Tablet 5-10 Mg PO Q4H PRN Reported [Ranitidine] 150 Mg PO BID PRN Probiotic-10 10 Bill Cell Cap (Lactobacill 46/B.animal/Inulin) 1 Each Capsule 1 Each PO DAILY Flintstones with Iron Tab Chew (Pedi Mv No.79/Ferrous Fumarate) 18 Mg Tab.chew 18 Mg PO DAILY Vitamin C (Ascorbic Acid) 1,000 Mg Tablet 1,000 Mg PO BID Zyrtec (Cetirizine HCl) 10 Mg Tablet 10 Mg PO DAILY Fiber Gummies (Inulin/Chromium Picolinate) 1 Each Tab.chew 1-2 Each PO DAILY Artificial Tears 15 Ml Soln 2 Drops OU PRN PRN Ferrex 150 (Iron Polysaccharide Complex) 150 Mg Capsule 150 Mg PO DAILY Naproxen 500 Mg Tablet 500 Mg PO BID Fluticasone Propionate 16 Gm [place].susp 2 Sprays NSEACH DAILY Zafirlukast 20 Mg Tablet 20 Mg PO BID Stool Softener (Docusate Sodium) 100 Mg Capsule 100-200 Mg PO DAILY PRN Hydroxyzine Pamoate 25 Mg Capsule 25 Mg PO HS Trazodone HCl 50 Mg Tablet 50 Mg PO HS Levothyroxine Sodium 88 Mcg Tablet 88 Mcg PO DAILY Venlafaxine HCl ER (Venlafaxine HCl) 75 Mg Cap.er.24h 75 Mg PO DAILY Atorvastatin Calcium 20 Mg Tablet 20 Mg PO HS Benazepril HCl 20 Mg Tablet 20 Mg PO DAILY Instructions to patient/family Please see electronic discharge instructions given to patient. Clinical Quality Measures DVT/VTE Risk/Contraindication: Risk Factor Score Per Nursin RFS Level Per Nursing on Admit: 4+=Very High Problem Qualifiers (1) Proximal humerus fracture: Encounter type: initial encounter Fracture type: closed Fracture morphology: unspecified fracture morphology Laterality: left Qualified Codes: S42.202A - Unspecified fracture of upper end of left humerus, initial encounter for closed fracture (2) HTN (hypertension): Hypertension type: essential hypertension Qualified Codes: I10 - Essential (primary) hypertension ROBLES CONLEY MD Jun 28, 2020 14:44
--- NOTE | 2020-06-28 15:02 | NUR ---
CM/SS: [facility] has accepted the pt for placement. Pt is able to admit today. [facility] can not transport pt. Pt request her friend Ania be contacted to transport. Ania is notified and able to bean picker pt. [facility] has been notified that pt should arrive there around 4pm today. Nolan Li called and notified that [facility] has accepted pt and that [facility] will bean picker pt to take to facility. Son is appreciative of the update. Pt is wished well. Discharge orders are faxed to [facility].
--- NOTE | 2020-06-28 15:02 | NUR ---
REPORT CALLED TO SHARIF AT [facility]
[2020-06-28 15:03] VITALS: BP 154/68
--- NOTE | 2020-06-28 15:50 | NUR ---
DILMA HOWARD discharged to [facility]. FAMILY notified of discharge and report given to SHARIF BATISTA. DILMA HOWARD belongings sent with PT. Skin dry and intact; no breakdown noted. Vital signs are stable at time of discharge. Condition is stable at time of discharge. Discharge instructions and copies of H&P, discharge summary, physician's order, lab reports, consultation reports, other dictated reports, diagnostic imaging reports, Advance Directive, eMAR, vital signs, intake and output sent with PT. Patient discharged from [facility] on 06/28/20 at 1550. DILMA HOWARD left floor via WC, accompanied by STAFF. DILMA HOWARD and family/DPOA notified and verbalize understanding of discharge to [facility].
== END 2020-06-28 15:50 | DRG 563 ==
LOC: EDUNIT# 12:38 → ER 12:42 → 4TH 14:50
PROVIDERS: ADMIT Internal Medicine; ATTEND Internal Medicine
DX: S42.202A Unspecified fracture of upper end of left humerus, initial encounter for closed fracture (principal); S22.32XA Fracture of one rib, left side, initial encounter for closed fracture; I69.154 Hemiplegia and hemiparesis following nontraumatic intracerebral hemorrhage affecting left non-dominant side; R53.1 Weakness; E78.5 Hyperlipidemia, unspecified; E03.9 Hypothyroidism, unspecified; I10 Essential (primary) hypertension; Z66 Do not resuscitate; G47.00 Insomnia, unspecified; M19.91 Primary osteoarthritis, unspecified site; Z87.891 Personal history of nicotine dependence; Z74.2 Need for assistance at home and no other household member able to render care; W19.XXXA Unspecified fall, initial encounter
CPT/HCPCS: 36415; 51702; 70450; 71045; 72125; 72170; 73030; 80053; 81000; 82962; 85007; 85025; 85027; 94760; 96374; 96375

== ENCOUNTER 2021-11-21 10:06 | Outpatient (RCR) | payer MEDICARE, OTHER ==
[~2021-11-21 10:06] MED LIST: ASCO100024 PO; ATOR20TA66 PO; BENA-3 PO; CETI10TA49 PO; CNC1KV IM; DOCU-26 PO; FLUT16SP22 NSEACH; FLUT9.9S NS; HYDR-3781 PO; HYDR-3870 PO; INUL1TAB4 PO; IRON150C3 PO; LACT1CAP91 PO; LEVO88TA54 PO; MONT-40 PO; NAPR-1070 PO; NAPR-915 PO; OXC5T PO; PEDI18TA2 PO; POLY15DR27 OU; RANITIDINE PO; TRZ50T PO; VENL75CA93 PO; ZAFI10TA2 PO; ZFR20T PO; ZOLP5TAB7 PO
== END 2021-12-01 | disposition home or self-care (01) ==
PROVIDERS: ATTEND Orthopaedic Surgery Orthopaedic Surgery of the Spine
DX: G54.0 Brachial plexus disorders (principal); M25.519 Pain in unspecified shoulder; M65.4 Radial styloid tenosynovitis [de Quervain]

== ENCOUNTER 2022-05-14 16:00 | Emergency (ER) | payer MEDICARE ==
[~2022-05-14] VITALS: Ht 163 cm; Wt 85.0 kg
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
--- NOTE | 2022-05-14 17:08 | Diagnostic Imaging Report ---
INDICATION: Chest pain. EXAMINATION: Portable chest at 05:03 p.m. FINDINGS: Heart size and pulmonary vascularity are normal. Lungs are clear. There are no effusions or pneumothoraces. IMPRESSION: No acute abnormalities in the chest. Dictated by: Dictated on workstation # [id number]
[2022-05-14] MEDS ORDERED: METH-732 PO (17:24)
[2022-05-14] MEDS ORDERED: METHOCARBAMOL 750 MG (ROBAXIN) TAB PO ONE (17:30)
[2022-05-14 17:50] VITALS: BP 118/70
== END 2022-05-14 17:50 | disposition home or self-care (01) ==
LOC: ER 16:00
DX: S20.211A Contusion of right front wall of thorax, initial encounter (principal); G83.89 Other specified paralytic syndromes; Z86.79 Personal history of other diseases of the circulatory system; Z99.81 Dependence on supplemental oxygen; Z87.891 Personal history of nicotine dependence; V49.50XA Passenger injured in collision with unspecified motor vehicles in traffic accident, initial encounter; Y92.410 Unspecified street and highway as the place of occurrence of the external cause
CPT/HCPCS: 71045; 93005